=== PATIENT | female | born 1955 | race Two or more races ===

== ENCOUNTER 2017-10-17 13:15 | Inpatient (IN) | payer MEDICARE, MEDICAID ==
[~2017-10-17] VITALS: Ht 162.6 cm; Wt 78.5 kg
--- NOTE | 2017-10-17 14:26 | Diagnostic Imaging Report ---
Indication: Shortness of breath Technique: One view of the chest Comparison: none Findings: The heart is mildly enlarged. Lungs and pleural spaces are clear. Atelectasis or scarring is seen in the left mid to lower lung. No definite acute infiltrates or effusions. Impression: Borderline cardiomegaly No definite acute process
[2017-10-17 14:28] LABS: HEMATOCRIT 18.1 % (37.0-47.0); MEAN CORPUSCULAR VOLUME 98 FL (80-99); PLATELET COUNT 223 K/UL (150-450); RED BLOOD COUNT 1.85 M/UL (4.20-5.40); RED CELL DISTRIBUTION WIDTH 15.4 % (11.6-14.8); WHITE BLOOD COUNT 5.1 K/UL (4.8-10.8)
[2017-10-17 14:30] LABS: HEMOGLOBIN 5.7 G/DL (12.0-16.0)
--- NOTE | 2017-10-17 14:38 | Emergency Room Report ---
History of Present Illness General Chief Complaint: Generalized Weakness Source: Patient, EMS, PMD - covering MD for Med group Present Illness HPI Patient presents with weakness. She states that she was unable to walk as she usually does. She's status post CVA in the past - textbook associate and she are adamant that there is no new stroke weakness.. She has has diabetes. Her glucose was 400 in the field. Polyuria and polydipsia. She denies chest pain, dyspnea, headache, trauma, vomiting, cough, diarrhea. No depression. H/O anemia and taking iron. (Only after labs and review of records from [facility] - CRF Recent tx with protonix. 10/10 allegedly Hgb was 7.8.) Allergies: Coded Allergies: No Known Allergies (Unverified , 10/17/17) Patient History Past Medical History: see triage record, renal disease Social History: Denies: smoking Social History Narrative with sister Last Menstrual Period: Unk Reviewed Nursing Documentation: PMH: Agreed; PSxH: Agreed Nursing Documentation-PMH Hx Hypertension: Yes Hx Diabetes: Yes Hx Cerebrovascular Accident: Yes Review of Systems All Other Systems: negative except mentioned in HPI Physical Exam Vital Signs Date Time Temp Pulse Resp B/P (MAP) Pulse Ox O2 Delivery O2 Flow Rate FiO2 10/17/17 12:44 97.7 64 20 132/55 98 Room Air 97.7 Sp02 EP Interpretation: reviewed, normal General Appearance: no apparent distress, alert, GCS 15, non-toxic, Chronically Ill Head: normocephalic Eyes: right eye other - lid lag ENT: moist mucus membranes, other - R facial weak Neck: supple Respiratory: chest non-tender, lungs clear, normal breath sounds Cardiovascular #1: regular rate, rhythm Cardiovascular #2: 2+ radial (L) Gastrointestinal: normal inspection, normal bowel sounds, non tender, soft Rectal: heme positive stool - black Genitourinary: no CVA tenderness Neurologic: alert, oriented x3, community educator III-XII nml as tested - except for R facial weakness, motor strength/tone normal, DTRs symmetric, sensory intact Psychiatric: mood/affect normal Skin: pallor Procedures Critical Care Time Critical Care Time Total Critical Care Time: 45 min bedside evaluation and treatment excludes procedures (EKG). Reason for critical care: NSTEMI, GI bleed, renal failure, need for blood Possible complications: hypotension, hypertension, NE, shock, arrhythmias, metabolic acidosis, end organ damage, respiratory failure. Interventions: Aspirin, informed consent for blood, transfusion, antibiotics, consultations Course: Patient with weakness and elevated glucose. Found to have NSTEMI. Also critical H/H. Blood ordered and informed consent discussed. Discussion with family, DORIAN OROZCO, admitting MD, GI specialist. Admitted OBEY. Improved. No need for dialysis immediately. Consultations: nursing staff, EMS, family, DORIAN OROZCO, admitting MD, GI specialist Performed by: Dr. Gross Tolerated well condition = serious Medical Decision Making Diagnostic Impression: Primary Impression: NSTEMI (non-ST elevated myocardial infarction) Additional Impressions: Profound anemia Qualified Codes: D50.8 - Other iron deficiency anemias Renal failure Qualified Codes: N17.9 - Acute kidney failure, unspecified; N18.4 - Chronic kidney disease, stage 4 (severe) Upper GI bleed UTI (urinary tract infection) Qualified Codes: N30.00 - Acute cystitis without hematuria ER Course Patient presents with weakness and elevated glucose. DDX: AMI, DKA, hyperglycemia, occult infection, worsened renal function, anemia amongst others. Evaluation with EKG, CXR, labs. No increased unilateral weakness, so CT head not indicated (more generalized process). Treatment with gentle hydration and consideration for giving insulin with following accuchecks. EKG without injury. Lab called with + troponin. Aspirin ordered. Patient pain free. Lab called with critical hgb. Blood ordered. Also CRF. CXR with inc pulmonary vasculature, but no overt pulmonary edema. With NSTEMI and low H/H, need to immediatedly transfuse (though concern over CRF ). Informed consent for blood done by me. Dr. Dosdon wants to transfer. I discussed patient not stable for transfer at this time. He told me Hgb results 10/10. Rectal performed after discussion. Pyuria. Rocephin ordered. Discussion with Dr. Russ and Dr. Barlow. Admit patient OBEY. Laboratory Tests Test 10/17/17 14:09 10/17/17 16:45 10/17/17 22:53 White Blood Count 5.1 K/UL (4.8-10.8) Red Blood Count 1.85 M/UL (4.20-5.40) L Hemoglobin 5.7 G/DL (12.0-16.0) *L Hematocrit 18.1 % (37.0-47.0) L Mean Corpuscular Volume 98 FL (80-99) Mean Corpuscular Hemoglobin 30.6 PG (27.0-31.0) Mean Corpuscular Hemoglobin Concent 31.4 G/DL (32.0-36.0) L Red Cell Distribution Width 15.4 % (11.6-14.8) H Platelet Count 223 K/UL (150-450) Mean Platelet Volume 7.5 FL (6.5-10.1) Neutrophils (%) (Auto) % (45.0-75.0) Lymphocytes (%) (Auto) % (20.0-45.0) Monocytes (%) (Auto) % (1.0-10.0) Eosinophils (%) (Auto) % (0.0-3.0) Basophils (%) (Auto) % (0.0-2.0) Differential Total Cells Counted 100 Neutrophils % (Manual) 77 % (45-75) H Lymphocytes % (Manual) 18 % (20-45) L Monocytes % (Manual) 5 % (1-10) Eosinophils % (Manual) 0 % (0-3) Basophils % (Manual) 0 % (0-2) Band Neutrophils 0 % (0-8) Platelet Estimate Adequate Platelet Morphology Normal Hypochromasia 2+ Anisocytosis 1+ Prothrombin Time 12.0 SEC (9.30-11.50) H Prothrombin Time INR 1.1 (0.9-1.1) PTT 24 SEC (23-33) Sodium Level 137 MMOL/L (136-145) Potassium Level 3.8 MMOL/L (3.5-5.1) Chloride Level 102 MMOL/L (98-107) Carbon Dioxide Level 25 MMOL/L (21-32) Anion Gap 10 mmol/L (5-15) Blood Urea Nitrogen 113 mg/dL (7-18) H Creatinine 4.0 MG/DL (0.55-1.30) H Estimate Glomerular Filtration Rate 11.3 mL/min (>60) Glucose Level 317 MG/DL (74-106) H Calcium Level 8.7 MG/DL (8.5-10.1) Total Bilirubin 0.2 MG/DL (0.2-1.0) Aspartate Amino Transferase (AST) 17 U/L (15-37) Alanine Aminotransferase (ALT) 23 U/L (12-78) Alkaline Phosphatase 64 U/L (46-116) Total Creatine Kinase 127 U/L (26-308) Troponin I 0.097 ng/mL (0.000-0.056) Pro-B-Type Natriuretic Peptide 7166 pg/mL (0-125) H Total Protein 7.8 G/DL (6.4-8.2) Albumin 3.5 G/DL (3.4-5.0) Globulin 4.3 g/dL Albumin/Globulin Ratio 0.8 (1.0-2.7) L Urine Color Pale yellow Urine Appearance Slightly cloudy Urine pH 5 (4.5-8.0) Urine Specific [place] 1.010 (1.005-1.035) Urine Protein 3+ (NEGATIVE) H Urine Glucose (UA) Negative (NEGATIVE) Urine Ketones Negative (NEGATIVE) Urine Occult Blood 5+ (NEGATIVE) H Urine Nitrite Negative (NEGATIVE) Urine Bilirubin Negative (NEGATIVE) Urine Urobilinogen Normal MG/DL (0.0-1.0) Urine Leukocyte Esterase 2+ (NEGATIVE) H Urine RBC Tntc /HPF (0 - 2) H Urine WBC 10-15 /HPF (0 - 2) H Urine Squamous Epithelial Cells Few /LPF (NONE/OCC) Urine Bacteria Many /HPF (NONE) H Urine Osmolality 335 mOsm/kg (429-449) L Urine Random Sodium 35 mmol/L (20-110) Urine Creatinine 54.0 MG/DL (30.0-125.0) EKG Diagnostic Results Rate: normal Rhythm: NSR ST Segments: no acute changes ASA given to the pt in ED: Yes Rhythm Strip Diag. Results EP Interpretation: yes Rhythm: NSR, no PVC's, no ectopy Chest X-Ray Diagnostic Results Chest X-Ray Diagnostic Results : Chest X-Ray Ordered: Yes # of Views/Limited/Complete: 1 View Indication: Other EP Interpretation: Yes Interpretation: no consolidation, no effusion, no pneumothorax, other - inc cor Impression: Other Electronically Signed by: Electronically signed by Toni Gross MD Last Vital Signs Date Time Temp Pulse Resp B/P (MAP) Pulse Ox O2 Delivery O2 Flow Rate FiO2 10/17/17 20:10 97.7 55 13 131/80 100 Room Air 97.7 Status: improved Disposition: ADMITTED INPATIENT Condition: Serious Toni Gross M.D. Oct 17, 2017 14:38
[2017-10-17 14:39] LABS: INR 1.1 (0.9-1.1)
[2017-10-17 14:40] LABS: ANION GAP 10 mmol/L (5-15); BLOOD UREA NITROGEN 113 mg/dL (7-18); CALCIUM 8.7 MG/DL (8.5-10.1); CARBON DIOXIDE 25 MMOL/L (21-32); CHLORIDE 102 MMOL/L (98-107); POTASSIUM 3.8 MMOL/L (3.5-5.1); SODIUM 137 MMOL/L (136-145)
[2017-10-17 14:51] LABS: ALANINE AMINOTRANSFERASE 23 U/L (12-78); ALBUMIN 3.5 G/DL (3.4-5.0); ALBUMIN/GLOBULIN RATIO 0.8 (1.0-2.7); ALKALINE PHOSPHATASE 64 U/L (46-116); ASPARTATE AMINO TRANSFERASE 17 U/L (15-37); BILIRUBIN,TOTAL 0.2 MG/DL (0.2-1.0); CREATINE KINASE 127 U/L (26-308)
[2017-10-17 15:53] VITALS: BP 117/68
[2017-10-17 16:54] LABS: APPEARANCE,URINE SLIGHTLY CLOUDY; BILIRUBIN, URINE NEGATIVE (NEGATIVE); COLOR,URINE PALE YELLOW; GLUCOSE, URINE (UA) NEGATIVE (NEGATIVE); KETONES,URINE NEGATIVE (NEGATIVE); LEUKOCYTE ESTERASE ,URINE 2+ (NEGATIVE); NITRITE,URINE NEGATIVE (NEGATIVE); PH,URINE 5 (4.5-8.0); PROTEIN,URINE 3+ (NEGATIVE); UROBILINOGEN,URINE NORMAL MG/DL (0.0-1.0)
[2017-10-17] MEDS ORDERED: Pantoprazole Inj IVP ONE (17:00)
[2017-10-17] MEDS ORDERED: cefTRIAXone 1 GM in NS 55 ML IVPB ONE (17:30)
[2017-10-17] MEDS ORDERED: HUMULIN R100 UNIT/1 SUBQ (17:53)
[2017-10-17] MEDS ORDERED: FUROSEMIDE40 MG ORAL (17:55)
[2017-10-17] MEDS ORDERED: ELIQUIS2.5 MG PO (17:57)
[2017-10-17] MEDS ORDERED: CARVEDILOL25 MG ORAL (17:58)
[2017-10-17] MEDS ORDERED: FERRETTS325 MG PO (18:01)
[2017-10-17] MEDS ORDERED: ATORVASTATIN CA40 MG ORAL (18:01)
[2017-10-17] MEDS ORDERED: ACTOS15 MG ORAL (18:04)
[2017-10-17] MEDS ORDERED: GLIPIZIDE5 MG ORAL (18:04)
[2017-10-17] MEDS ORDERED: AMLODIPINE BESY10 MG ORAL (18:04)
[2017-10-17] MEDS ORDERED: FERROUS SULFAT325 MG ORAL (18:10)
[2017-10-17] MEDS ORDERED: LATANOPROST2.5 ML BOTH EYES (18:10)
[2017-10-17] MEDS ORDERED: DOCUSATE SODIU100 MG ORAL (18:10)
[2017-10-17] MEDS ORDERED: ASPIRIN81 MG ORAL (18:10)
[2017-10-17] MEDS ORDERED: SEN-O-TAB8.6 MG ORAL (18:12)
[2017-10-17 19:13] VITALS: BP 115/53
[2017-10-17 20:10] VITALS: BP 131/80
[2017-10-17] MEDS: Pantoprazole Inj IVP SCH (21:14)
--- NOTE | 2017-10-17 21:48 | General Progress Note ---
Assessment/Plan Assessment/Plan GI CONSULT Assessment: - GI Bleed - Anemia - NIDDM - CRF - Recent h/o CVA - on ASA and Eliquis Recommendations: - NPO - monitor CBC - hold Eliquis and Aspirin - Took Eliquis and Aspirin today --> will postpone am EGD to another date - will follow Thank you Veronika Frias MD Subjective Allergies: Coded Allergies: No Known Allergies (Unverified , 10/17/17) Objective Last 24 Hour Vital Signs Date Time Temp Pulse Resp B/P (MAP) Pulse Ox O2 Delivery O2 Flow Rate FiO2 10/17/17 20:10 97.7 55 13 131/80 100 Room Air 97.7 10/17/17 20:07 55 13 131/80 100 Room Air 10/17/17 19:13 97.7 55 11 115/53 100 Room Air 97.7 10/17/17 15:53 97.7 89 20 117/68 100 Room Air 97.7 10/17/17 12:44 97.7 64 20 132/55 98 Room Air 97.7 Laboratory Tests 10/17/17 14:09: White Blood Count 5.1, Red Blood Count 1.85L, Hemoglobin 5.7*L, Hematocrit 18.1L , Mean Corpuscular Volume 98, Mean Corpuscular Hemoglobin 30.6, Mean Corpuscular Hemoglobin Concent 31.4L, Red Cell Distribution Width 15.4H, Platelet Count 223, Mean Platelet Volume 7.5, Neutrophils (%) (Auto) , Lymphocytes (%) (Auto) , Monocytes (%) (Auto) , Eosinophils (%) (Auto) , Basophils (%) (Auto) , Differential Total Cells Counted 100, Neutrophils % ( Manual) 77H, Lymphocytes % (Manual) 18L, Monocytes % (Manual) 5, Eosinophils % ( Manual) 0, Basophils % (Manual) 0, Band Neutrophils 0, Platelet Estimate Adequate, Platelet Morphology Normal, Hypochromasia 2+, Anisocytosis 1+, Prothrombin Time 12.0H, Prothromb Time International Ratio 1.1, Activated Partial Thromboplast Time 24, Sodium Level 137, Potassium Level 3.8, Chloride Level 102, Carbon Dioxide Level 25, Anion Gap 10, Blood Urea Nitrogen 113H, Creatinine 4.0H, Estimat Glomerular Filtration Rate 11.3, Glucose Level 317H, Calcium Level 8.7, Total Bilirubin 0.2, Aspartate Amino Transf (AST/SGOT) 17, Alanine Aminotransferase (ALT/SGPT) 23, Alkaline Phosphatase 64, Total Creatine Kinase 127, Troponin I 0.097H, Pro-B-Type Natriuretic Peptide 7166H, Total Protein 7.8, Albumin 3.5, Globulin 4.3, Albumin/Globulin Ratio 0.8L 10/17/17 16:45: Urine Color Pale yellow, Urine Appearance Slightly cloudy, Urine pH 5, Urine Specific [place] 1.010, Urine Protein 3+H, Urine Glucose (UA) Negative, Urine Ketones Negative, Urine Occult Blood 5+H, Urine Nitrite Negative, Urine Bilirubin Negative, Urine Urobilinogen Normal, Urine Leukocyte Esterase 2+H, Urine RBC TntcH, Urine WBC 10-15H, Urine Squamous Epithelial Cells Few, Urine Bacteria ManyH Height (Feet): 5 Height (Inches): 4.00 Weight (Pounds): 175 FLYVERONIKA Oct 17, 2017 21:48
[2017-10-17] MEDS: NS w/KCl 20mEq 1,000 ML IV SCH (22:30)
[2017-10-18] MEDS ORDERED: Metoprolol Tartrate 5 MG in D5W 55 ML IVPB SCH ×2
[2017-10-18] MEDS ORDERED: Metoprolol 5mg/5ml Inj IVPB SCH
[2017-10-18 00:47] VITALS: BP 126/61
--- NOTE | 2017-10-18 02:15 | Consultation ---
DATE OF CONSULTATION: 10/17/2017 CARDIOLOGY CONSULTATION CONSULTING PHYSICIAN: Toni Ariza M.D. REASON FOR CONSULTATION: Elevated troponin level in the setting of acute GI bleeding. HISTORY OF PRESENT ILLNESS: This is a 62-year-old female with advanced atherosclerosis, prior strokes, and a history of hypertension with congestive heart failure. She is also on chronic anticoagulation, although it is unclear why. She presented to the emergency room with weakness and unsteady gait, although usually she has difficulty walking even with a walker due to prior strokes. The symptoms had worsened today. The patient was noted to have a severely low hemoglobin level of less than 6 with a troponin level of 0.097. Her historical data is obtained from her sister who notes that she has had black stool due to iron replacement, but more recently it became darker. PAST MEDICAL HISTORY: 1. Diabetes mellitus type 2. 2. Hypertension. 3. Congestive heart failure. 4. History of multiple strokes. 5. Possible history of atrial fibrillation. MEDICATIONS: Prior to admission, reviewed and reconciled. ALLERGIES: None. FAMILY HISTORY: Noncontributory. SOCIAL HISTORY: Nonsmoker. No alcohol or substance abuse. REVIEW OF SYSTEMS: She was last hospitalized in May with congestive heart failure according to her sister. PHYSICAL EXAMINATION: GENERAL: Frail, awake, alert, and interactive. No acute distress. VITAL SIGNS: Blood pressure 132/55, pulse 64, and respiratory rate 20. HEENT: Normocephalic and atraumatic. Conjunctivae pink. Oropharynx clear. NECK: Supple. Jugular venous pressure normal. LUNGS: Clear. CARDIAC: Regular rhythm and rate. Normal S1 and S2 with a fourth heart sound. ABDOMEN: Soft, nontender. EXTREMITIES: There is 1+ dependent edema. NEUROLOGIC: With left-sided weakness. LABORATORY AND DIAGNOSTIC DATA: EKG reveals sinus rhythm with minimal voltage for LVH and no acute changes. Chest x-ray with no acute process other than cardiomegaly. Labs, white count 5.1, hemoglobin 5.7, MCV 98, and platelet count 223. Troponin 0.097. Pro-natriuretic peptide 7166. BUN 113, creatinine 4, and potassium 3.8. IMPRESSION: 1. Severe anemia due to acute gastrointestinal bleeding. 2. Acute myocardial infarction precipitated by severe anemia and decreased oxygen carrying capacity. 3. Acute on chronic systolic and diastolic congestive heart failure. 4. Cerebrovascular disease with multi-infarct dementia. 5. Type 2 diabetes mellitus. 6. Hypertensive heart disease. 7. Acute on chronic renal failure. 8. Coagulopathy due to apixaban. PLAN: Transfuse to hemoglobin above 8. Hold anticoagulation. Cautious hydration. Monitor cardiorenal parameters and volume status. Intravenous beta-antonieta. No anti-platelet or anticoagulant therapy. DVT prophylaxis with SCDs. GI evaluation and possible endoscopy, although risk will be increased due to comorbidities and acute coronary ischemia. Toni Ariza M.D. DR: LUIS ALFREDO JOB#: [id number] CC:
[2017-10-18 02:56] LABS: HEMATOCRIT 22.9 % (37.0-47.0); HEMOGLOBIN 7.9 G/DL (12.0-16.0); MEAN CORPUSCULAR VOLUME 93 FL (80-99); PLATELET COUNT 201 K/UL (150-450); RED BLOOD COUNT 2.46 M/UL (4.20-5.40); RED CELL DISTRIBUTION WIDTH 14.7 % (11.6-14.8); WHITE BLOOD COUNT 5.6 K/UL (4.8-10.8)
[2017-10-18 03:14] LABS: ALANINE AMINOTRANSFERASE 22 U/L (12-78); ALBUMIN 3.3 G/DL (3.4-5.0); ALBUMIN/GLOBULIN RATIO 0.9 (1.0-2.7); ALKALINE PHOSPHATASE 65 U/L (46-116); ANION GAP 12 mmol/L (5-15); ASPARTATE AMINO TRANSFERASE 15 U/L (15-37); BILIRUBIN,TOTAL 0.6 MG/DL (0.2-1.0); BLOOD UREA NITROGEN 105 mg/dL (7-18); CALCIUM 8.2 MG/DL (8.5-10.1); CARBON DIOXIDE 24 MMOL/L (21-32); CHLORIDE 106 MMOL/L (98-107); CREATININE 3.7 MG/DL (0.55-1.30); POTASSIUM 3.1 MMOL/L (3.5-5.1); SODIUM 141 MMOL/L (136-145)
[2017-10-18 04:00] VITALS: BP 120/60
--- NOTE | 2017-10-18 05:30 | Consultation ---
DATE OF CONSULTATION: 10/17/2017 GASTROENTEROLOGY CONSULTATION CONSULTING PHYSICIAN: Veronika Frias M.D. CHIEF COMPLAINT: I was asked to see the patient for evaluation of gastrointestinal bleeding. HISTORY OF PRESENT ILLNESS: The patient is a pleasant 62-year-old woman, who comes in with severe anemia, which is symptomatic. She has been generally feeling weak for weeks now and she has been known to have a history of end-stage renal disease approaching dialysis. However, today the patient felt lightheaded and dizzy and came to the emergency room where she was noted to have dark heme-positive stools and severe anemia. It should be noted however that the patient does take iron and her stools are always black. Nonetheless, the patient is admitted and is undergoing transfusion. She is on aspirin and Eliquis for a history of frequent small strokes. These have been both given to her for the past few months. She has never had endoscopy or colonoscopy before. She has multiple other medical problems, which are outlined below. She denies any abdominal pain, nausea, or vomiting. PAST MEDICAL HISTORY: History of insulin-dependent diabetes mellitus, history of hypercholesterolemia, history of end-stage renal disease, which apparently is stage IV, but not on dialysis yet; history of anemia, on iron; and history of multiple mini strokes, on Eliquis and aspirin. ALLERGIES: Noted. FAMILY HISTORY: Noncontributory. SOCIAL HISTORY: The patient lives at home with her sister. She does not smoke or drink at this time. REVIEW OF SYSTEMS: Otherwise negative. PHYSICAL EXAMINATION: GENERAL: A pleasant -I[place]ian woman, seen in her room with family at bedside. HEENT: Normocephalic and atraumatic. Sclerae anicteric. Oropharynx clear. NECK: Supple. CHEST: Clear to auscultation. CARDIOVASCULAR: Revealed a regular rate. ABDOMEN: Soft with good bowel sounds. There is no organomegaly. EXTREMITIES: Revealed no edema. LABORATORY AND DIAGNOSTIC DATA: Laboratory data were noted. ASSESSMENT: This patient presents with severe anemia with heme-positive stools. Her stools are dark, but this may be due to iron and the degree of acuity of gastrointestinal bleeding is uncertain. Some of the anemia may be indeed due to chronic renal disease with azotemia. Nonetheless, the patient will need to be risk stratified with endoscopic evaluation. The patient states that her last dose of Eliquis and aspirin were this morning, and therefore, therapeutic treatment only at this point may be limited. The patient will be observed closely for now. The patient should receive blood transfusion if needed and also have her blood levels checked serially. The patient had a small degree of troponin leak, but her EKG is unremarkable and she denies having chest pain. I suspect that this is from the severe anemia. Her endoscopy will be scheduled once adequate time has lapsed from her last dose of Eliquis. Endoscopy can be done sooner if there is clinical evidence of significant gastrointestinal bleeding. RECOMMENDATIONS: 1. Keep the patient NPO. 2. Transfuse as needed. 3. Proton-pump inhibitor. 4. Hold aspirin and Eliquis. 5. Upper GI endoscopy at a later date 6. Cardiology evaluation Thank you for asking me to participate in the care of the patient. Veronika Frias M.D. DR: SALINAS JOB#: [id number] CC: KENYATTA
[2017-10-18] MEDS: Metoprolol Tartrate 5 MG in D5W 55 ML IVPB SCH ×5 (06:00→17:39)
[2017-10-18 08:15] VITALS: BP 125/62
--- NOTE | 2017-10-18 09:33 | History & Physical ---
History and Physical History & Physicial dict GIB NV CHF admit inpatient transfuse Lasix consult GI, EGD consult cardiology, renal Eduardo Russ MD Oct 18, 2017 09:33
[2017-10-18] MEDS: Pantoprazole Inj IVP SCH ×2 (10:15→20:51)
[2017-10-18 12:00] VITALS: BP 131/68
[2017-10-18] MEDS: NS w/KCl 20mEq 1,000 ML IV SCH (15:46)
[2017-10-18 16:00] VITALS: BP 146/72
--- NOTE | 2017-10-18 18:30 | History and Physical Report ---
DATE OF ADMISSION: 10/17/2017 CHIEF COMPLAINT: Weakness. HISTORY OF PRESENT ILLNESS: The patient presented to the emergency department with several days of weakness and black tarry stool. She was found to have GI bleeding and hemoglobin of 5. Blood transfusions were given and she is feeling better. She states that she has had many blood transfusions over the years, but is not sure why she is anemic. She is on blood thinners. She has never had an endoscopy and is not aware of any history of GI bleeding. PAST MEDICAL HISTORY: Multiple strokes with right-sided weakness, hypertension, congestive heart failure, stage 5 renal failure, but not on dialysis and anemia. She has diabetes, which is controlled with diet and oral medications as well as insulin, possible history of atrial fibrillation and hyperlipidemia. MEDICATIONS: Amlodipine, Eliquis, baby aspirin, Lipitor, Coreg, Colace, iron, Lasix, glipizide, insulin, Xalatan, Actos and senna. ALLERGIES: None. REVIEW OF SYSTEMS: She has difficulty ambulating and uses a walker. She has no headaches or seizures. She has no difficulty with vision. There is no shortness of breath or chest pain. She has no history of cardiac disease to her knowledge. There is no history of nausea, vomiting or diarrhea, but she has melena as noted above. She has no ankle edema, but does have some joint pain. PHYSICAL EXAMINATION: GENERAL: The patient is alert and responds appropriately. She has mild dysarthria. VITAL SIGNS: Normal with heart rate is slightly low at 55. She is on nasal oxygen. HEENT: The head is normocephalic. NECK: No jugular vein distention. CHEST: Clear. CARDIAC: Rhythm is regular without murmur or gallop. ABDOMEN: Soft and nontender. Liver and spleen are not enlarged. EXTREMITIES: No clubbing, cyanosis, or edema. There is right-sided weakness and right facial droop. LABORATORY AND DIAGNOSTIC DATA: Hemoglobin was 5.7 on admission and has improved to 7.9 after 2 units of pack cells. Platelets are normal. White count is normal. The blood sugar is 149, sodium is low today and its supplements were ordered. Creatinine was 4.0 and BUN 113 with estimated creatinine clearance of 11, today the creatinine is down to 3.7. Troponin is elevated at 0.09 and kendall today to 0.138. IMPRESSION: 1. Acute GI bleed with severe anemia due to blood loss. 2. Acute MA due to demand ischemia, rule out coronary heart disease. 3. CHF with elevated natriuretic peptide. 4. Diabetes. 5. Hypertension, now normotensive, off medication. 6. Hyperlipidemia. 7. History of multiple strokes, on anticoagulants. 8. End-stage renal disease, stage 5, not on dialysis. PLAN: The patient's anticoagulation was discontinued. Consultation have been requested with GI, Nephrology and Cardiology. She will require endoscopy. Additional blood transfusions will be given in view of the cardiac disease and hemoglobin less than 8. Lasix will be given. She may require dialysis. The patient is seriously ill and prognosis is guarded. Eduardo Russ M.D. DR: GERARDO JOB#: [id number] CC: Eduardo Russ M.D.; Fax#: [phone] ATTILA BILL M.D. ; FAX#: [phone] Debora Hess M.D.; FAX#: [phone]
[2017-10-18 20:00] VITALS: BP 147/71
[2017-10-18] MEDS: Latanoprost 0.005% Opth 2.5ml Soln BOTH EYES SCH (20:50)
[2017-10-18] MEDS: LORazepam 0.5mg tab ORAL PRN (20:51)
--- NOTE | 2017-10-18 21:15 | Consultation ---
DATE OF CONSULTATION: 10/18/2017 CONSULTING PHYSICIAN: Fabian Gómez M.D. REASON FOR CONSULTATION: Elevated BUN and creatinine. HISTORY OF PRESENT ILLNESS: The patient is a 62-year-old lady, who presents with severe anemia and weakness. There is history of prior CVAs, anticoagulation, hypertension, congestive heart failure. She presented with severe anemia and dark stools although she is taking iron. ALLERGIES: None known. HABITS: She is a nonsmoker and nondrinker. SURGERIES: Hysterectomy and appendectomy. MEDICATIONS: Prior to admission, medications on the computer include amlodipine, apixaban, aspirin, atorvastatin, carvedilol, DSS, ferrous sulfate, furosemide, glipizide, regular insulin sliding scale, Xalatan, Actos, and senna. SYSTEM REVIEW: HEAD, EYES, EARS, NOSE, THROAT: She has had decreased visual acuity. She is not known to have any diabetic retinopathy. Hearing is good. ENDOCRINE: Diabetes apparently for only 1 to 2 years now. No known thyroid disease. PULMONARY: She has dyspnea on exertion. No chronic cough or asthma. CARDIAC: History of hypertension, CHF. GASTROINTESTINAL: Denies nausea, vomiting, or abdominal pain. GENITOURINARY: No dysuria or hematuria. NEUROLOGIC: History of prior CVAs and dysarthria. MUSCULOSKELETAL: History of mild arthralgias. She is able to walk. PHYSICAL EXAMINATION: GENERAL: The patient is lying in bed, chronically ill-appearing, alert. VITAL SIGNS: Temperature 96.8, pulse 52, blood pressure 121/73. HEAD, EYES, EARS, NOSE, THROAT: Sclerae are nonicteric. Ocular motions intact in all directions. Oral mucosa moist. NECK: No adenopathy. LUNGS: Clear. HEART: The rhythm is regular. Apical S4. I hear no murmur. There is JVD about 6 cm above the clavicle at 30 degrees. ABDOMEN: Soft. I am unable to feel liver or spleen. EXTREMITIES: Show 1+ edema. NEUROLOGIC: She is alert, dysarthric. Ocular motions intact in all directions. There is questionable facial asymmetry. She moves all extremities. Flavorer is 4+/5 in both arms. Gait is not tested. LABORATORY AND DIAGNOSTIC DATA: Pertinent labs as follows. Urinalysis has 3+ protein, too numerous to count red cells, and 10 to 15 white cells per high-powered field. Urine sodium 35, urine creatinine is 54. Chemistries today, sodium 141, potassium 3.1, chloride 106, CO2 24, BUN 105, creatinine is 3.7, calcium 8.2, and albumin 3.3. Troponin 0.138. Chest x-ray, cardiomegaly. IMPRESSION: 1. Severe anemia, likely GI bleeding. 2. Chronic kidney disease, likely stage 4-5, with proteinuria and possibly nephrotic syndrome. 3. History of CVAs. 4. Ischemic cardiomyopathy. 5. Hypertensive heart disease and renal disease. 6. Diabetic nephropathy. PLAN: We will watch the patient while she is being receiving transfusions and having GI evaluation. Avoid fluid overload. Continue to maximize her cardiac status. I discussed with the family and the patient at the bedside that she has chronic kidney disease and they are aware. She states she had seen a veneer jointer helper in the past. I have also discussed the fact that she may need dialysis sometime in the near future and should be prepared for that after her current problem is stabilized. Fabian Gómez M.D. DR: Mary JOB#: [id number] CC:
--- NOTE | 2017-10-18 21:24 | General Progress Note ---
Assessment/Plan Assessment/Plan Assessment: - GI Bleed - Anemia - NIDDM - CRF - Recent h/o CVA - on ASA and Eliquis Recommendations: - clear liquids - monitor CBC - hold Eliquis and Aspirin - EGD at later date Subjective Allergies: Coded Allergies: No Known Allergies (Unverified , 10/17/17) Subjective Feels OK no new symptoms H&H noted Objective Last 24 Hour Vital Signs Date Time Temp Pulse Resp B/P (MAP) Pulse Ox O2 Delivery O2 Flow Rate FiO2 10/18/17 17:39 51 116/69 10/18/17 16:00 97.5 57 18 146/72 98 Nasal Cannula 97.5 10/18/17 16:00 56 10/18/17 12:00 96.8 54 18 131/68 98 Nasal Cannula 96.8 10/18/17 12:00 57 10/18/17 12:00 52 121/73 10/18/17 08:50 Nasal Cannula 2.0 28 10/18/17 08:49 99 Nasal Cannula 2.0 28 10/18/17 08:15 98.2 56 18 125/62 100 Nasal Cannula 98.2 10/18/17 08:00 57 10/18/17 06:00 54 120/60 10/18/17 04:00 55 10/18/17 04:00 98.3 55 20 120/60 100 Nasal Cannula 2.0 98.3 10/18/17 00:47 98.9 54 20 126/61 100 Nasal Cannula 2.0 98.9 10/18/17 00:30 Nasal Cannula 2.0 28 10/18/17 00:30 99 Nasal Cannula 2.0 28 10/18/17 00:00 54 124/61 10/18/17 00:00 55 Intake and Output 10/17/17 10/18/17 19:00 07:00 Intake Total 1010 ml Output Total 550 ml Balance 460 ml Intake IV Total 510 ml Blood Product 500 ml Output Urine Total 550 ml # Voids 1 2 Laboratory Tests 10/17/17 22:53: Urine Osmolality 335L, Urine Random Sodium 35, Urine Creatinine 54.0 10/18/17 02:19: White Blood Count 5.6, Red Blood Count 2.46L, Hemoglobin 7.9#L, Hematocrit 22.9L , Mean Corpuscular Volume 93, Mean Corpuscular Hemoglobin 32.0H, Mean Corpuscular Hemoglobin Concent 34.3, Red Cell Distribution Width 14.7, Platelet Count 201, Mean Platelet Volume 7.9, Neutrophils (%) (Auto) , Lymphocytes (%) ( Auto) , Monocytes (%) (Auto) , Eosinophils (%) (Auto) , Basophils (%) (Auto) , Sodium Level 141, Potassium Level 3.1L, Chloride Level 106, Carbon Dioxide Level 24, Anion Gap 12, Blood Urea Nitrogen 105H, Creatinine 3.7H, Estimat Glomerular Filtration Rate 12.3, Glucose Level 149#H, Calcium Level 8.2L, Total Bilirubin 0.6, Aspartate Amino Transf (AST/SGOT) 15, Alanine Aminotransferase ( ALT/SGPT) 22, Alkaline Phosphatase 65, Troponin I 0.138H, Pro-B-Type Natriuretic Peptide 6494H, Total Protein 6.9, Albumin 3.3L, Globulin 3.6, Albumin/Globulin Ratio 0.9L, Thyroid Stimulating Hormone (TSH) 2.749 Height (Feet): 5 Height (Inches): 4.00 Weight (Pounds): 166 Objective WDWN NCAT supple CTA RRR abd soft ND NT trace edema non focal ATTILA BILL Oct 18, 2017 21:24
[2017-10-18] MEDS: Zolpidem 5mg tab ORAL PRN (22:59)
[2017-10-19] VITALS: BP 123/54
--- NOTE | 2017-10-19 02:15 | Progress Note ---
DATE: 10/18/2017 CARDIOLOGY PROGRESS NOTE SUBJECTIVE: The patient has had continued bleeding. She has required several units of packed red blood cell transfusions. She has been on anti-platelet and anticoagulant therapy prior to admission. She is on a clear liquid diet at this time. OBJECTIVE: VITAL SIGNS: Blood pressure of 121/73 to 146/72, heart rate 52 to 57, respiratory rate 18, and she is afebrile. HEENT: Oropharynx clear. NECK: Supple. LUNGS: Clear. CARDIAC: Regular rhythm and rate. Normal S1, S2 with a fourth heart sound. There is elevated jugular venous pressure. ABDOMEN: Soft. EXTREMITIES: A 1+ dependent edema. The patient has diminished wellness guide, left greater than right. LABORATORY DATA: Hemoglobin 7.9 following two units of packed red blood cells. Sodium 141, potassium 3.1, bicarbonate 24, BUN 105, and creatinine 3.7. Troponin 0.138. Pro-natriuretic peptide is 6400. Albumin 3.3. TSH is normal. IMPRESSION: 1. Severe anemia precipitated by acute gastrointestinal blood loss. 2. Acute gastrointestinal bleeding. 3. Hypokalemia. 4. Acute on chronic renal failure. 5. Acute myocardial infarction. 6. Acute on chronic diastolic and systolic congestive heart failure. 7. Severe protein-calorie malnutrition. 8. Hematuria. 9. Bradycardia. PLAN: 1. Transfuse to maintain hemoglobin level above 7.5. 2. Hold anti-platelet and anticoagulation. 3. Cautious maintenance IV fluid hydration. 4. Titrate antihypertensives. 5. Hold parameters with beta-blockers. 6. Reassess for diagnostic GI workup once more stable from cardiovascular standpoint. Toni Ariza M.D. DR: JADEN JOB#: [id number] CC:
[2017-10-19 04:00] VITALS: BP 140/54
[2017-10-19] MEDS: Metoprolol Tartrate 5 MG in D5W 55 ML IVPB SCH ×5 (06:00→18:00)
[2017-10-19] MEDS: NS w/KCl 20mEq 1,000 ML IV SCH (06:31)
[2017-10-19 06:48] LABS: BASOPHILS % (AUTO) 0.4 % (0.0-2.0); EOSINOPHILS % (AUTO) 0.7 % (0.0-3.0); HEMATOCRIT 27.3 % (37.0-47.0); HEMOGLOBIN 9.6 G/DL (12.0-16.0); LYMPHOCYTES % (AUTO) 10.1 % (20.0-45.0); MEAN CORPUSCULAR VOLUME 94 FL (80-99); MONOCYTES % (AUTO) 6.7 % (1.0-10.0); NEUTROPHILS % (AUTO) 82.1 % (45.0-75.0); PLATELET COUNT 196 K/UL (150-450); RED BLOOD COUNT 2.92 M/UL (4.20-5.40); RED CELL DISTRIBUTION WIDTH 14.9 % (11.6-14.8); WHITE BLOOD COUNT 10.8 K/UL (4.8-10.8)
[2017-10-19 07:05] LABS: ALANINE AMINOTRANSFERASE 21 U/L (12-78); ALBUMIN 3.2 G/DL (3.4-5.0); ALBUMIN/GLOBULIN RATIO 0.8 (1.0-2.7); ALKALINE PHOSPHATASE 67 U/L (46-116); ANION GAP 14 mmol/L (5-15); ASPARTATE AMINO TRANSFERASE 15 U/L (15-37); BILIRUBIN,TOTAL 0.6 MG/DL (0.2-1.0); BLOOD UREA NITROGEN 88 mg/dL (7-18); CALCIUM 8.5 MG/DL (8.5-10.1); CARBON DIOXIDE 23 MMOL/L (21-32); CHLORIDE 108 MMOL/L (98-107); CHOLESTEROL 103 MG/DL (< 200); CREATININE 3.4 MG/DL (0.55-1.30); HDL CHOLESTEROL 44 MG/DL (40-60); POTASSIUM 3.4 MMOL/L (3.5-5.1); SODIUM 145 MMOL/L (136-145); TRIGLYCERIDES 38 MG/DL (30-150)
[2017-10-19 08:00] VITALS: BP 141/76
[2017-10-19] MEDS: Pantoprazole Inj IVP SCH ×2 (09:35→20:53)
[2017-10-19] MEDS ORDERED: NS 275ml ONE (09:58)
[2017-10-19] MEDS ORDERED: Tubing IV Blood Pump IV ONE (09:58)
--- NOTE | 2017-10-19 10:54 | General Progress Note ---
Assessment/Plan Assessment/Plan Assessment: - GI Bleed - Anemia - NIDDM - CRF - Recent h/o CVA - on ASA and Eliquis Recommendations: - advance po to solids - monitor CBC - hold Eliquis and Aspirin - EGD Saturday, if OK with cardiology Subjective Allergies: Coded Allergies: No Known Allergies (Unverified , 10/17/17) Subjective Feels OK no new symptoms H&H noted hungry Objective Last 24 Hour Vital Signs Date Time Temp Pulse Resp B/P (MAP) Pulse Ox O2 Delivery O2 Flow Rate FiO2 10/19/17 07:40 Nasal Cannula 2.0 28 10/19/17 07:40 94 Nasal Cannula 2.0 28 10/19/17 06:00 54 140/54 10/19/17 04:00 97.5 60 19 140/54 100 Nasal Cannula 2.0 97.5 10/19/17 04:00 59 10/19/17 00:00 54 135/71 10/19/17 00:00 97.5 54 19 123/54 100 Nasal Cannula 2.0 97.5 10/19/17 00:00 59 10/18/17 20:00 62 10/18/17 20:00 97.5 60 18 147/71 98 Nasal Cannula 2.0 97.5 10/18/17 19:21 98 Nasal Cannula 2.0 28 10/18/17 19:21 Nasal Cannula 2.0 28 10/18/17 17:39 51 116/69 10/18/17 16:00 97.5 57 18 146/72 98 Nasal Cannula 97.5 10/18/17 16:00 56 10/18/17 12:00 96.8 54 18 131/68 98 Nasal Cannula 96.8 10/18/17 12:00 57 10/18/17 12:00 52 121/73 Intake and Output 10/18/17 10/19/17 19:00 07:00 Intake Total 1620 ml 990 ml Output Total 600 ml 1000 ml Balance 1020 ml -10 ml Intake Oral 300 ml IV Total 720 ml 690 ml Other 900 ml Output Urine Total 600 ml 1000 ml Laboratory Tests 10/19/17 04:00: White Blood Count 10.8#, Red Blood Count 2.92L, Hemoglobin 9.6L, Hematocrit 27.3L, Mean Corpuscular Volume 94, Mean Corpuscular Hemoglobin 32.8H, Mean Corpuscular Hemoglobin Concent 35.0, Red Cell Distribution Width 14.9H, Platelet Count 196, Mean Platelet Volume 8.1, Neutrophils (%) (Auto) 82.1H, Lymphocytes (%) (Auto) 10.1L, Monocytes (%) (Auto) 6.7, Eosinophils (%) (Auto) 0.7, Basophils (%) (Auto) 0.4, Sodium Level 145, Potassium Level 3.4L, Chloride Level 108H, Carbon Dioxide Level 23, Anion Gap 14, Blood Urea Nitrogen 88H, Creatinine 3.4H, Estimat Glomerular Filtration Rate 13.6, Glucose Level 163H, Hemoglobin A1c 6.9H, Calcium Level 8.5, Total Bilirubin 0.6, Aspartate Amino Transf (AST/SGOT) 15, Alanine Aminotransferase (ALT/SGPT) 21, Alkaline Phosphatase 67, Total Protein 7.3, Albumin 3.2L, Globulin 4.1, Albumin/Globulin Ratio 0.8L, Triglycerides Level 38, Cholesterol Level 103, LDL Cholesterol 61, HDL Cholesterol 44, Cholesterol/HDL Ratio 2.3L, Thyroid Stimulating Hormone (TSH ) 1.791 Height (Feet): 5 Height (Inches): 4.00 Weight (Pounds): 165 Objective WDWN NCAT supple CTA RRR abd soft ND NT trace edema non focal ATTILA BILL Oct 19, 2017 10:54
[2017-10-19 12:00] VITALS: BP 145/72
--- NOTE | 2017-10-19 15:04 | Pulmonology Progress Note ---
Assessment/Plan Assessment/Plan 1. Acute GI bleed with severe anemia due to blood loss. 2. Acute PR due to demand ischemia, rule out coronary heart disease. 3. CHF with elevated natriuretic peptide. 4. Diabetes. 5. Hypertension, now normotensive, off medication. 6. Hyperlipidemia. 7. History of multiple strokes, on anticoagulants. 8. End-stage renal disease, stage 5, not on dialysis. HD per renal prbc if less than 7 nebx home meds bp stable EGD saturday watch io Subjective ROS Limited/Unobtainable: No Allergies: Coded Allergies: No Known Allergies (Unverified , 10/17/17) Subjective confused positive uop no cp nv or bleeding not getting oob minimal po Objective Last 24 Hour Vital Signs Date Time Temp Pulse Resp B/P (MAP) Pulse Ox O2 Delivery O2 Flow Rate FiO2 10/19/17 12:00 52 10/19/17 12:00 97.5 50 18 145/72 100 Nasal Cannula 2.0 97.5 10/19/17 12:00 52 141/76 10/19/17 08:00 97.0 56 16 141/76 100 Nasal Cannula 2.0 97.0 10/19/17 08:00 97 10/19/17 07:40 Nasal Cannula 2.0 28 10/19/17 07:40 94 Nasal Cannula 2.0 28 10/19/17 06:00 54 140/54 10/19/17 04:00 97.5 60 19 140/54 100 Nasal Cannula 2.0 97.5 10/19/17 04:00 59 10/19/17 00:00 54 135/71 10/19/17 00:00 97.5 54 19 123/54 100 Nasal Cannula 2.0 97.5 10/19/17 00:00 59 10/18/17 20:00 62 10/18/17 20:00 97.5 60 18 147/71 98 Nasal Cannula 2.0 97.5 10/18/17 19:21 98 Nasal Cannula 2.0 28 10/18/17 19:21 Nasal Cannula 2.0 28 10/18/17 17:39 51 116/69 10/18/17 16:00 97.5 57 18 146/72 98 Nasal Cannula 97.5 10/18/17 16:00 56 Intake and Output 10/18/17 10/19/17 19:00 07:00 Intake Total 1620 ml 990 ml Output Total 600 ml 1000 ml Balance 1020 ml -10 ml Intake Oral 300 ml IV Total 720 ml 690 ml Other 900 ml Output Urine Total 600 ml 1000 ml General Appearance: WD/WN HEENT: atraumatic Respiratory/Chest: crackles/rales, rhonchi Cardiovascular: normal rate, regular rhythm, murmur systolic Abdomen: soft, non tender, no organomegaly Extremities: no clubbing Skin: no rash Neurologic/Psychiatric: disoriented Lymphatic: no groin adenopathy Microbiology Date/Time Source Procedure Growth Status 10/17/17 16:45 Urine,Clean Catch Urine Culture - Final Escherichia Coli Complete Laboratory Tests 10/19/17 04:00: White Blood Count 10.8#, Red Blood Count 2.92L, Hemoglobin 9.6L, Hematocrit 27.3L, Mean Corpuscular Volume 94, Mean Corpuscular Hemoglobin 32.8H, Mean Corpuscular Hemoglobin Concent 35.0, Red Cell Distribution Width 14.9H, Platelet Count 196, Mean Platelet Volume 8.1, Neutrophils (%) (Auto) 82.1H, Lymphocytes (%) (Auto) 10.1L, Monocytes (%) (Auto) 6.7, Eosinophils (%) (Auto) 0.7, Basophils (%) (Auto) 0.4, Sodium Level 145, Potassium Level 3.4L, Chloride Level 108H, Carbon Dioxide Level 23, Anion Gap 14, Blood Urea Nitrogen 88H, Creatinine 3.4H, Estimat Glomerular Filtration Rate 13.6, Glucose Level 163H, Hemoglobin A1c 6.9H, Calcium Level 8.5, Total Bilirubin 0.6, Aspartate Amino Transf (AST/SGOT) 15, Alanine Aminotransferase (ALT/SGPT) 21, Alkaline Phosphatase 67, Total Protein 7.3, Albumin 3.2L, Globulin 4.1, Albumin/Globulin Ratio 0.8L, Triglycerides Level 38, Cholesterol Level 103, LDL Cholesterol 61, HDL Cholesterol 44, Cholesterol/HDL Ratio 2.3L, Thyroid Stimulating Hormone (TSH ) 1.791 Current Medications Medications (Trade) Dose Ordered Sig/Leigh Route PRN Reason Start Time Stop Time Status Last Admin Dose Admin Dextrose (Dextrose 50%) 25 ml STAT PRN IV Hypoglycemia BS BTWN 60-69 10/17/17 20:45 11/16/17 20:44 Dextrose (Dextrose 50%) 50 ml STAT PRN IV Hypoglycemia BS<60 MG/DL 10/17/17 20:45 11/16/17 20:44 Latanoprost (Xalatan) 1 drop BEDTIME BOTH EYES 10/18/17 21:00 11/17/17 20:59 10/18/17 20:50 Lorazepam (Ativan) 0.5 mg Q8H PRN ORAL For Anxiety 10/18/17 20:30 10/25/17 20:29 10/18/17 20:51 Metoprolol Tartrate 5 mg/ Dextrose 60 ml @ 120 mls/hr Q6HR IVPB 10/18/17 00:00 11/17/17 00:00 Pantoprazole (Protonix) 40 mg EVERY 12 HOURS IVP 10/17/17 21:00 11/16/17 20:59 10/19/17 09:35 Sodium Chloride 1,000 ml @ 60 mls/hr [id number] IV 10/17/17 21:30 11/16/17 21:29 10/19/17 06:31 Zolpidem Tartrate (Ambien) 5 mg HSPRN PRN ORAL Insomnia 10/18/17 20:30 10/25/17 20:29 10/18/17 22:59 CRISTEL RAMOS DO Oct 19, 2017 15:04
--- NOTE | 2017-10-19 15:24 | Nephrology Progress Note ---
Assessment/Plan Problem List: (1) CKD (chronic kidney disease) stage 4, GFR 15-29 ml/min (2) Profound anemia (3) Upper GI bleed (4) UTI (urinary tract infection) Plan continue gi eval, lab a bit better, avoid fluid overload, epogen Subjective Constitutional: Reports: weakness HEENT: Reports: no symptoms Genitourinary: Reports: no symptoms Neurologic/Psychiatric: Reports: pre-existing deficit Objective Objective Last 24 Hour Vital Signs Date Time Temp Pulse Resp B/P (MAP) Pulse Ox O2 Delivery O2 Flow Rate FiO2 10/19/17 12:00 52 10/19/17 12:00 97.5 50 18 145/72 100 Nasal Cannula 2.0 97.5 10/19/17 12:00 52 141/76 10/19/17 08:00 97.0 56 16 141/76 100 Nasal Cannula 2.0 97.0 10/19/17 08:00 97 10/19/17 07:40 Nasal Cannula 2.0 28 10/19/17 07:40 94 Nasal Cannula 2.0 28 10/19/17 06:00 54 140/54 10/19/17 04:00 97.5 60 19 140/54 100 Nasal Cannula 2.0 97.5 10/19/17 04:00 59 10/19/17 00:00 54 135/71 10/19/17 00:00 97.5 54 19 123/54 100 Nasal Cannula 2.0 97.5 10/19/17 00:00 59 10/18/17 20:00 62 10/18/17 20:00 97.5 60 18 147/71 98 Nasal Cannula 2.0 97.5 10/18/17 19:21 98 Nasal Cannula 2.0 28 10/18/17 19:21 Nasal Cannula 2.0 28 10/18/17 17:39 51 116/69 10/18/17 16:00 97.5 57 18 146/72 98 Nasal Cannula 97.5 10/18/17 16:00 56 Intake and Output 10/18/17 10/19/17 19:00 07:00 Intake Total 1620 ml 990 ml Output Total 600 ml 1000 ml Balance 1020 ml -10 ml Intake Oral 300 ml IV Total 720 ml 690 ml Other 900 ml Output Urine Total 600 ml 1000 ml Laboratory Tests 10/19/17 04:00: White Blood Count 10.8#, Red Blood Count 2.92L, Hemoglobin 9.6L, Hematocrit 27.3L, Mean Corpuscular Volume 94, Mean Corpuscular Hemoglobin 32.8H, Mean Corpuscular Hemoglobin Concent 35.0, Red Cell Distribution Width 14.9H, Platelet Count 196, Mean Platelet Volume 8.1, Neutrophils (%) (Auto) 82.1H, Lymphocytes (%) (Auto) 10.1L, Monocytes (%) (Auto) 6.7, Eosinophils (%) (Auto) 0.7, Basophils (%) (Auto) 0.4, Sodium Level 145, Potassium Level 3.4L, Chloride Level 108H, Carbon Dioxide Level 23, Anion Gap 14, Blood Urea Nitrogen 88H, Creatinine 3.4H, Estimat Glomerular Filtration Rate 13.6, Glucose Level 163H, Hemoglobin A1c 6.9H, Calcium Level 8.5, Total Bilirubin 0.6, Aspartate Amino Transf (AST/SGOT) 15, Alanine Aminotransferase (ALT/SGPT) 21, Alkaline Phosphatase 67, Total Protein 7.3, Albumin 3.2L, Globulin 4.1, Albumin/Globulin Ratio 0.8L, Triglycerides Level 38, Cholesterol Level 103, LDL Cholesterol 61, HDL Cholesterol 44, Cholesterol/HDL Ratio 2.3L, Thyroid Stimulating Hormone (TSH ) 1.791 Height (Feet): 5 Height (Inches): 4.00 Weight (Pounds): 165 General Appearance: no apparent distress, alert EENT: normal ENT inspection Neck: normal alignment Cardiovascular: normal rate, regular rhythm, other - +jvd Respiratory/Chest: lungs clear Abdomen: non tender, soft Extremities: trace edema Neurologic: motor weakness WEI RAO Oct 19, 2017 15:24
[2017-10-19 16:00] VITALS: BP 115/60
[2017-10-19 20:00] VITALS: BP 141/68
[2017-10-19] MEDS: Zolpidem 5mg tab ORAL PRN (20:54)
[2017-10-19] MEDS: Latanoprost 0.005% Opth 2.5ml Soln BOTH EYES SCH (21:01)
[2017-10-19] MEDS: LORazepam 0.5mg tab ORAL PRN (22:48)
[2017-10-20] VITALS: BP 144/75
[2017-10-20] MEDS: Metoprolol Tartrate 5 MG in D5W 55 ML IVPB SCH (00:43)
--- NOTE | 2017-10-20 03:15 | Progress Note ---
DATE: 10/19/2017 CARDIOLOGY PROGRESS NOTE SUBJECTIVE: No new signs of bleeding noted. No chest pain or shortness of breath. Monitor, sinus bradycardia. OBJECTIVE: VITAL SIGNS: Blood pressure 145/72, pulse 50, respiratory rate 18. LUNGS: Bilateral breath sounds. No wheezing or rales. HEART: Regular rhythm. Slow rate. Normal S1, S2. There is a fourth heart sound. ABDOMEN: Soft. No focal tenderness. EXTREMITIES: No edema. LABORATORY DATA: White count 10.8, hemoglobin 9.6. Potassium 3.4, BUN 88, creatinine 3.4. IMPRESSION: Remains critical and guarded 1. Gastrointestinal bleeding. 2. Severe anemia. 3. Acute myocardial infarction. 4. Sinus bradycardia, on beta-antonieta. 5. Cerebrovascular disease with multi-infarct dementia. 6. Acute on chronic renal injury. PLAN: 1. Off anti-platelet and anticoagulant therapy. 2. Transition from IV to oral beta-antonieta and titrate for adequate rate control. 3. Avoid overhydration. 4. Monitor volume status and cardiorenal parameters. 5. Endoscopy anticipated over the next 48 hours. Toni Ariza M.D. DR: Alexys JOB#: [id number] CC: KENYATTA
[2017-10-20 04:00] VITALS: BP 140/60
[2017-10-20 05:27] LABS: ANION GAP 13 mmol/L (5-15); BLOOD UREA NITROGEN 85 mg/dL (7-18); CALCIUM 8.7 MG/DL (8.5-10.1); CARBON DIOXIDE 22 MMOL/L (21-32); CHLORIDE 108 MMOL/L (98-107); CREATININE 3.1 MG/DL (0.55-1.30); SODIUM 143 MMOL/L (136-145)
[2017-10-20 05:29] LABS: BASOPHILS % (AUTO) 0.8 % (0.0-2.0); EOSINOPHILS % (AUTO) 2.6 % (0.0-3.0); HEMATOCRIT 27.8 % (37.0-47.0); HEMOGLOBIN 9.4 G/DL (12.0-16.0); LYMPHOCYTES % (AUTO) 14.6 % (20.0-45.0); MEAN CORPUSCULAR VOLUME 95 FL (80-99); MONOCYTES % (AUTO) 6.4 % (1.0-10.0); NEUTROPHILS % (AUTO) 75.6 % (45.0-75.0); PLATELET COUNT 186 K/UL (150-450); RED BLOOD COUNT 2.92 M/UL (4.20-5.40); RED CELL DISTRIBUTION WIDTH 14.5 % (11.6-14.8); WHITE BLOOD COUNT 7.2 K/UL (4.8-10.8)
[2017-10-20 08:00] VITALS: BP 161/77
--- NOTE | 2017-10-20 08:15 | Pulmonology Progress Note ---
Assessment/Plan Assessment/Plan 1. Acute GI bleed with severe anemia due to blood loss. 2. Acute IN due to demand ischemia, rule out coronary heart disease. 3. CHF with elevated natriuretic peptide. 4. Diabetes. 5. Hypertension, now normotensive, off medication. 6. Hyperlipidemia. 7. History of multiple strokes, on anticoagulants. 8. End-stage renal disease, stage 5, not on dialysis. HD per renal, bnp elevated otday prbc if less than 7 (HGB stable at this time) nebx home meds bp stable EGD saturday po as tolerated check ra sat cxr in am Subjective Constitutional: Reports: no symptoms HEENT: Repors: no symptoms Cardiovascular: Reports: no symptoms Genitourinary: Reports: no symptoms Neurologic: Reports: no symptoms Allergies: Coded Allergies: No Known Allergies (Unverified , 10/17/17) Subjective less confused this am feels better positive uop no cp nv or bleeding not getting oob tolerating po no bleeding Objective Last 24 Hour Vital Signs Date Time Temp Pulse Resp B/P (MAP) Pulse Ox O2 Delivery O2 Flow Rate FiO2 10/20/17 04:00 62 10/20/17 04:00 97.9 60 19 140/60 100 Nasal Cannula 2.0 97.9 10/20/17 00:43 54 144/75 10/20/17 00:00 98.1 54 19 144/75 99 Nasal Cannula 2.0 98.1 10/20/17 00:00 62 10/19/17 20:00 98.4 56 18 141/68 100 Nasal Cannula 2.0 98.4 10/19/17 20:00 59 10/19/17 19:30 98 Nasal Cannula 2.0 28 10/19/17 19:30 Nasal Cannula 2.0 28 10/19/17 18:00 52 145/60 10/19/17 16:00 98.1 53 18 115/60 100 Nasal Cannula 2.0 98.1 10/19/17 15:38 54 10/19/17 12:00 52 10/19/17 12:00 97.5 50 18 145/72 100 Nasal Cannula 2.0 97.5 10/19/17 12:00 52 141/76 Intake and Output 10/19/17 10/20/17 19:00 07:00 Intake Total 640 ml Output Total 1000 ml 800 ml Balance -1000 ml -160 ml Intake Oral 640 ml Output Urine Total 1000 ml 800 ml General Appearance: WD/WN Respiratory/Chest: lungs clear, normal breath sounds Cardiovascular: normal peripheral pulses, regular rhythm Abdomen: normal bowel sounds, soft, non tender, no mass Extremities: no cyanosis Skin: no rash Neurologic/Psychiatric: alert, oriented x 3 Lymphatic: no neck adenopathy Musculoskeletal: normal muscle bulk Microbiology Date/Time Source Procedure Growth Status 10/17/17 16:45 Urine,Clean Catch Urine Culture - Final Escherichia Coli Complete Laboratory Tests 10/20/17 03:24: White Blood Count 7.2, Red Blood Count 2.92L, Hemoglobin 9.4L, Hematocrit 27.8L , Mean Corpuscular Volume 95, Mean Corpuscular Hemoglobin 32.3H, Mean Corpuscular Hemoglobin Concent 33.9, Red Cell Distribution Width 14.5, Platelet Count 186, Mean Platelet Volume 6.7, Neutrophils (%) (Auto) 75.6H, Lymphocytes ( %) (Auto) 14.6L, Monocytes (%) (Auto) 6.4, Eosinophils (%) (Auto) 2.6, Basophils (%) (Auto) 0.8, Sodium Level 143, Potassium Level 4.0, Chloride Level 108H, Carbon Dioxide Level 22, Anion Gap 13, Blood Urea Nitrogen 85H, Creatinine 3.1H, Estimat Glomerular Filtration Rate 15.1, Glucose Level 212H, Calcium Level 8.7, Magnesium Level 2.2, Pro-B-Type Natriuretic Peptide 53066R Current Medications Medications (Trade) Dose Ordered Sig/Leigh Route PRN Reason Start Time Stop Time Status Last Admin Dose Admin Dextrose (Dextrose 50%) 25 ml STAT PRN IV Hypoglycemia BS BTWN 60-69 10/17/17 20:45 11/16/17 20:44 Dextrose (Dextrose 50%) 50 ml STAT PRN IV Hypoglycemia BS<60 MG/DL 10/17/17 20:45 11/16/17 20:44 Latanoprost (Xalatan) 1 drop BEDTIME BOTH EYES 10/18/17 21:00 11/17/17 20:59 10/19/17 21:01 Lorazepam (Ativan) 0.5 mg Q8H PRN ORAL For Anxiety 10/18/17 20:30 10/25/17 20:29 10/19/17 22:48 Metoprolol Tartrate (Lopressor) 25 mg Q12HR ORAL 10/20/17 09:00 11/19/17 08:59 Pantoprazole (Protonix) 40 mg EVERY 12 HOURS IVP 10/17/17 21:00 11/16/17 20:59 10/19/17 20:53 Zolpidem Tartrate (Ambien) 5 mg HSPRN PRN ORAL Insomnia 10/18/17 20:30 10/25/17 20:29 10/19/17 20:54 CRISTEL RAMOS DO Oct 20, 2017 08:15
[2017-10-20] MEDS: Pantoprazole Inj IVP SCH ×2 (08:43→21:24)
[2017-10-20] MEDS ORDERED: Metoprolol 25mg tab ORAL SCH (09:00)
[2017-10-20] MEDS ORDERED: NovoLOG Insulin Flexpen SUBQ SCH (11:30)
--- NOTE | 2017-10-20 11:58 | Nephrology Progress Note ---
Assessment/Plan Problem List: (1) CKD (chronic kidney disease) stage 4, GFR 15-29 ml/min (2) Profound anemia (3) Upper GI bleed (4) UTI (urinary tract infection) Plan continue gi eval, lab a bit better, avoid fluid overload, epogen, lasix 40 iv on 10/20, start hydralazine for bp Subjective Constitutional: Reports: weakness HEENT: Reports: no symptoms Genitourinary: Reports: no symptoms Neurologic/Psychiatric: Reports: pre-existing deficit Objective Objective Last 24 Hour Vital Signs Date Time Temp Pulse Resp B/P (MAP) Pulse Ox O2 Delivery O2 Flow Rate FiO2 10/20/17 08:50 62 161/77 10/20/17 08:00 97.2 60 20 161/77 100 97.2 10/20/17 07:52 62 10/20/17 04:00 62 10/20/17 04:00 97.9 60 19 140/60 100 Nasal Cannula 2.0 97.9 10/20/17 00:43 54 144/75 10/20/17 00:00 98.1 54 19 144/75 99 Nasal Cannula 2.0 98.1 10/20/17 00:00 62 10/19/17 20:00 98.4 56 18 141/68 100 Nasal Cannula 2.0 98.4 10/19/17 20:00 59 10/19/17 19:30 98 Nasal Cannula 2.0 28 10/19/17 19:30 Nasal Cannula 2.0 28 10/19/17 18:00 52 145/60 10/19/17 16:00 98.1 53 18 115/60 100 Nasal Cannula 2.0 98.1 10/19/17 15:38 54 10/19/17 12:00 52 10/19/17 12:00 97.5 50 18 145/72 100 Nasal Cannula 2.0 97.5 10/19/17 12:00 52 141/76 Intake and Output 10/19/17 10/20/17 19:00 07:00 Intake Total 640 ml Output Total 1000 ml 800 ml Balance -1000 ml -160 ml Intake Oral 640 ml Output Urine Total 1000 ml 800 ml Laboratory Tests 10/20/17 03:24: White Blood Count 7.2, Red Blood Count 2.92L, Hemoglobin 9.4L, Hematocrit 27.8L , Mean Corpuscular Volume 95, Mean Corpuscular Hemoglobin 32.3H, Mean Corpuscular Hemoglobin Concent 33.9, Red Cell Distribution Width 14.5, Platelet Count 186, Mean Platelet Volume 6.7, Neutrophils (%) (Auto) 75.6H, Lymphocytes ( %) (Auto) 14.6L, Monocytes (%) (Auto) 6.4, Eosinophils (%) (Auto) 2.6, Basophils (%) (Auto) 0.8, Sodium Level 143, Potassium Level 4.0, Chloride Level 108H, Carbon Dioxide Level 22, Anion Gap 13, Blood Urea Nitrogen 85H, Creatinine 3.1H, Estimat Glomerular Filtration Rate 15.1, Glucose Level 212H, Calcium Level 8.7, Magnesium Level 2.2, Pro-B-Type Natriuretic Peptide 12476O Height (Feet): 5 Height (Inches): 4.00 Weight (Pounds): 166 General Appearance: no apparent distress EENT: other - periorbital edema Neck: normal alignment Cardiovascular: regular rhythm Respiratory/Chest: lungs clear Abdomen: non tender, soft Extremities: trace edema Neurologic: motor weakness WEI RAO Oct 20, 2017 11:58
[2017-10-20 12:00] VITALS: BP 152/77
[2017-10-20] MEDS ORDERED: HydrALAZINE 50mg tab ORAL SCH (12:00)
--- NOTE | 2017-10-20 13:14 | General Progress Note ---
Assessment/Plan Assessment/Plan Assessment: - GI Bleed - Anemia - NIDDM - CRF - Recent h/o CVA - on ASA and Eliquis Recommendations: -po as tolerated - monitor CBC - Eliquis and Aspirin on hold - EGD Saturday Subjective Allergies: Coded Allergies: No Known Allergies (Unverified , 10/17/17) Subjective Feels OK no new symptoms H&H noted tolerating PO for EGD tomorrow Objective Last 24 Hour Vital Signs Date Time Temp Pulse Resp B/P (MAP) Pulse Ox O2 Delivery O2 Flow Rate FiO2 10/20/17 12:42 152/77 10/20/17 12:00 97.3 59 20 152/77 100 97.3 10/20/17 08:50 62 161/77 10/20/17 08:00 97.2 60 20 161/77 100 97.2 10/20/17 07:52 62 10/20/17 04:00 62 10/20/17 04:00 97.9 60 19 140/60 100 Nasal Cannula 2.0 97.9 10/20/17 00:43 54 144/75 10/20/17 00:00 98.1 54 19 144/75 99 Nasal Cannula 2.0 98.1 10/20/17 00:00 62 10/19/17 20:00 98.4 56 18 141/68 100 Nasal Cannula 2.0 98.4 10/19/17 20:00 59 10/19/17 19:30 98 Nasal Cannula 2.0 28 10/19/17 19:30 Nasal Cannula 2.0 28 10/19/17 18:00 52 145/60 10/19/17 16:00 98.1 53 18 115/60 100 Nasal Cannula 2.0 98.1 10/19/17 15:38 54 Intake and Output 10/19/17 10/20/17 19:00 07:00 Intake Total 640 ml Output Total 1000 ml 800 ml Balance -1000 ml -160 ml Intake Oral 640 ml Output Urine Total 1000 ml 800 ml Laboratory Tests 10/20/17 03:24: White Blood Count 7.2, Red Blood Count 2.92L, Hemoglobin 9.4L, Hematocrit 27.8L , Mean Corpuscular Volume 95, Mean Corpuscular Hemoglobin 32.3H, Mean Corpuscular Hemoglobin Concent 33.9, Red Cell Distribution Width 14.5, Platelet Count 186, Mean Platelet Volume 6.7, Neutrophils (%) (Auto) 75.6H, Lymphocytes ( %) (Auto) 14.6L, Monocytes (%) (Auto) 6.4, Eosinophils (%) (Auto) 2.6, Basophils (%) (Auto) 0.8, Sodium Level 143, Potassium Level 4.0, Chloride Level 108H, Carbon Dioxide Level 22, Anion Gap 13, Blood Urea Nitrogen 85H, Creatinine 3.1H, Estimat Glomerular Filtration Rate 15.1, Glucose Level 212H, Calcium Level 8.7, Magnesium Level 2.2, Pro-B-Type Natriuretic Peptide 63011Q Height (Feet): 5 Height (Inches): 4.00 Weight (Pounds): 166 Objective WDWN NCAT supple CTA RRR abd soft ND NT trace edema non focal ATTILA BILL Oct 20, 2017 13:14
[2017-10-20 16:00] VITALS: BP 152/78
[2017-10-20] MEDS: NovoLOG Insulin Flexpen SUBQ SCH ×2 (17:37→21:27)
[2017-10-20] MEDS: HydrALAZINE 50mg tab ORAL SCH (17:38)
[2017-10-20 20:00] VITALS: BP 147/73
[2017-10-20] MEDS: Metoprolol 25mg tab ORAL SCH (21:00)
--- NOTE | 2017-10-20 21:00 | Progress Note ---
DATE: 10/20/2017 CARDIOLOGY PROGRESS NOTE SUBJECTIVE: No chest pain. No shortness of breath. Hemoglobin remained stable, status post several units of packed red blood cells. OBJECTIVE: VITAL SIGNS: Blood pressure 140/60, pulse 60, respiratory rate 19. Monitored rhythm sinus . LUNGS: Coarse breath sounds. No wheezing. HEART: Regular rhythm and rate. Normal S1, S2. There is a fourth heart sound. ABDOMEN: Soft. No focal tenderness. EXTREMITIES: No edema. LABORATORY DATA: Sodium 143, potassium 4, bicarbonate 22, BUN 85, creatinine 3.1, magnesium 2.2. Pro-natriuretic peptide has increased to 12,000. White count 7.3, hemoglobin 9.4. IMPRESSION: Remains Critical and Guarded 1. Acute GI bleed. 2. Severe anemia. 3. Acute myocardial infarction. 4. Hypertensive heart disease. 5. History of cerebrovascular accident. 6. Type 2 diabetes mellitus. 7. Acute on chronic renal failure. PLAN: 1. Continue to hold anti-platelet and anticoagulation. 2. Await EGD, stable at this time for EGD. 3. Continue beta-antonieta. 4. Respiratory hygiene. 5. Titrate antihypertensives based on clinical parameters. 6. We will tighten blood pressure control further following completion of GI workup. Toni Ariza M.D. DR: Alexys JOB#: [id number] CC: KENYATTA
[2017-10-20] MEDS: Latanoprost 0.005% Opth 2.5ml Soln BOTH EYES SCH (21:25)
[2017-10-20] MEDS ORDERED: Dicyclomine HCl 10mg/5ml oral soln ORAL PRN (21:30)
[2017-10-20] MEDS: Zolpidem 5mg tab ORAL PRN (22:04)
[2017-10-21] VITALS (9 sets, daily range): BP systolic 127–163; BP diastolic 53–80
[2017-10-21] MEDS: HydrALAZINE 50mg tab ORAL SCH ×4 (00:34→18:14)
[2017-10-21] MEDS: NovoLOG Insulin Flexpen SUBQ SCH ×4 (06:28→21:34)
[2017-10-21] MEDS: Metoprolol 25mg tab ORAL SCH ×2 (09:06→21:28)
[2017-10-21] MEDS: Pantoprazole Inj IVP SCH ×2 (09:06→21:26)
--- NOTE | 2017-10-21 09:51 | Cardiology Report ---
APPROVED REPORT EXAM: Two-dimensional and M-mode echocardiogram with Doppler and color Doppler. INDICATION Congestive Heart Failure M-Mode DIMENSIONS IVSd1.2 (0.7-1.1cm)Left Atrium (MM)4.7 (1.6-4.0cm) LVDd4.8 (3.5-5.6cm)Aortic Root2.5 (2.0-3.7cm) PWd1.5 (0.7-1.1cm)Aortic Cusp Exc.1.7 (1.5-2.0cm) LVDs3.1 (2.5-4.0cm) PWs2.2 cm Normal left ventricular chamber size, systolic function and wall motion. Left ventricular ejection fraction estimated to be 55 %. Mild left ventricular hypertrophy. No evidence of pericardial effusion. Mild bi-atrial enlargement. Right ventricular chamber sizes is within normal limits. Focal aortic valve sclerosis with adequate cusp excursion. Mildly thickened mitral valve leaflets with normal excursion. Mild mitral annulus and aortic root calcification. Normal pulmonic valve structure. Normal tricuspid valve structure. IVC dilated at 3.0 without physiological collapse, estimated RAP is 20 mmHg. A color flow and spectral Doppler study was performed and revealed: No aortic insufficiency. Moderate to severe mitral regurgitation. Mitral inflow indicates increased left atrial pressure, suggestive restrictive pattern (Grade III). Severe tricuspid regurgitation. Tricuspid systolic velocities suggests peak right ventricular systolic pressure of 101 mmHg, consistent with severe pulmonary hypertension. Severe pulmonic regurgitation present.
[2017-10-21 10:01] LABS: BASOPHILS % (AUTO) 0.5 % (0.0-2.0); EOSINOPHILS % (AUTO) 3.2 % (0.0-3.0); LYMPHOCYTES % (AUTO) 11.2 % (20.0-45.0); MEAN CORPUSCULAR VOLUME 96 FL (80-99); MONOCYTES % (AUTO) 6.2 % (1.0-10.0); NEUTROPHILS % (AUTO) 78.9 % (45.0-75.0); PLATELET COUNT 178 K/UL (150-450); RED BLOOD COUNT 2.82 M/UL (4.20-5.40); RED CELL DISTRIBUTION WIDTH 14.7 % (11.6-14.8); WHITE BLOOD COUNT 8.2 K/UL (4.8-10.8)
[2017-10-21 10:40] LABS: ANION GAP 12 mmol/L (5-15); BLOOD UREA NITROGEN 73 mg/dL (7-18); CALCIUM 8.8 MG/DL (8.5-10.1); CARBON DIOXIDE 25 MMOL/L (21-32); CHLORIDE 108 MMOL/L (98-107); POTASSIUM 3.6 MMOL/L (3.5-5.1); SODIUM 145 MMOL/L (136-145)
--- NOTE | 2017-10-21 11:16 | Anethesia Preoperative Eval ---
Anesthesia Pre-op PMH/ROS General Date of Evaluation: Oct 21, 2017 Anesthesiologist: Gael ASA Score: ASA 3 Mallampati Score Class I : Soft palate, uvula, fauces, pillars visible Class II: Soft palate, uvula, fauces visible Class III: Soft palate, base of uvula visible Class IV: Only hard plate visible Mallampati Classification: Class III Surgeon: Rodriguez Diagnosis: GI bleed Surgical Procedure: EGD Anesthesia History: none Family History: no anesthesia problems Allergies: Coded Allergies: No Known Allergies (Unverified , 10/17/17) Medications: see eMAR Past Medical History Cardiovascular: Reports: HTN, other - CHF; Denies: CAD, MA, valve dz, arrhythmia Pulmonary: Denies: asthma, COPD, CELENA, other Gastrointestinal/Genitourinary: Denies: GERD, CRI, ESRD, other Neurologic/Psychiatric: Reports: CVA; Denies: dementia, depression/anxiety, TIA, other Endocrine: Reports: DM; Denies: hypothyroidism, steroids, other HEENT: Denies: cataract (L), cataract (R), glaucoma, NATIVE (L), NATIVE (R), other Hematology/Immune: Denies: anemia, DVT, bleeding disorder, other Musculoskeletal/Integumentary: Denies: OA, RA, DJD, DDD, edema, other PSxH Narrative: Denies Anesthesia Pre-op Phys. Exam Physician Exam Last Vital Signs Date Time Temp Pulse Resp B/P (MAP) Pulse Ox O2 Delivery O2 Flow Rate FiO2 10/21/17 09:06 72 142/69 10/21/17 08:00 98.0 20 94 Nasal Cannula 2.0 98.0 10/19/17 19:30 28 Constitutional: NAD Cardiovascular: RRR Respiratory: CTA Airway Exam Mallampati Score: Class III MO: limited ROM: limited Anesthesia Pre-op A/P Labs Hematology Test 10/21/17 06:20 White Blood Count 8.2 K/UL (4.8-10.8) Red Blood Count 2.82 M/UL (4.20-5.40) L Hemoglobin 9.0 G/DL (12.0-16.0) L Hematocrit 27.0 % (37.0-47.0) L Mean Corpuscular Volume 96 FL (80-99) Mean Corpuscular Hemoglobin 31.8 PG (27.0-31.0) H Mean Corpuscular Hemoglobin Concent 33.2 G/DL (32.0-36.0) Red Cell Distribution Width 14.7 % (11.6-14.8) Platelet Count 178 K/UL (150-450) Mean Platelet Volume 7.0 FL (6.5-10.1) Neutrophils (%) (Auto) 78.9 % (45.0-75.0) H Lymphocytes (%) (Auto) 11.2 % (20.0-45.0) L Monocytes (%) (Auto) 6.2 % (1.0-10.0) Eosinophils (%) (Auto) 3.2 % (0.0-3.0) H Basophils (%) (Auto) 0.5 % (0.0-2.0) Chemistry Test 10/21/17 06:20 Sodium Level 145 MMOL/L (136-145) Potassium Level 3.6 MMOL/L (3.5-5.1) Chloride Level 108 MMOL/L (98-107) H Carbon Dioxide Level 25 MMOL/L (21-32) Anion Gap 12 mmol/L (5-15) Blood Urea Nitrogen 73 mg/dL (7-18) H Creatinine 3.0 MG/DL (0.55-1.30) H Estimat Glomerular Filtration Rate 15.7 mL/min (>60) Glucose Level 223 MG/DL (74-106) H Calcium Level 8.8 MG/DL (8.5-10.1) Studies Pre-op Studies: EKG - sr Risk Assessment & Plan Assessment: ASA III Plan: MAC Status Change Before Surgery: No Pre-Antibiotics Drug: N/A GUALBERTO FORREST M.D. Oct 21, 2017 11:16
[2017-10-21] MEDS ORDERED: LR 1000ml 1,000 ML IVLG SCH (11:17)
--- NOTE | 2017-10-21 11:18 | Immediate Post-Op Evaluation ---
Immediate Post-Op Evalulation Immediate Post-Op Evalulation Procedure: EGD Date of Evaluation: Oct 21, 2017 Time of Evaluation: 12:34 IV Fluids: 200 Blood Products: 0 Estimated Blood Loss: 0 Urinary Output: 0 Blood Pressure Systolic: 163 Blood Pressure Diastolic: 80 Pulse Rate: 67 Respiratory Rate: 16 O2 Sat by Pulse Oximetry: 100 Temperature (Fahrenheit): 98.1 Pain Score (1-10): 0 Nausea: No Vomiting: No Complications 0 Patient Status: awake, reacts, patent, none Hydration Status: adequate Drug: N/A GUALBERTO FORREST M.D. Oct 21, 2017 11:18
[2017-10-21] MEDS ORDERED: DiphenhydrAMINE 50mg/ml Inj IVP PRN (11:30)
[2017-10-21] MEDS ORDERED: NS 500ML IV ONE (11:55)
[2017-10-21] MEDS ORDERED: LR 1000ml ONE (12:00)
[2017-10-21] MEDS ORDERED: Propofol 200mg/20ml IV ONE (12:00)
[2017-10-21] MEDS ORDERED: Lidocaine 1% MPF 10mg/ml 5ml ONE (12:00)
--- NOTE | 2017-10-21 12:07 | Pre-Procedure Note/Attestation ---
Pre-Procedure Note/Attestation Complete Prior to Procedure Planned Procedure: not applicable Procedure Narrative: EGD Indications for Procedure Pre-Operative Diagnosis: GIB Attestation I attest that I discussed the nature of the procedure; its benefits; risks and complications; and alternatives (and the risks and benefits of such alternatives ), prior to the procedure, with the patient (or the patient's legal scheduling representative). I attest that, if there was a reasonable possibility of needing a blood transfusion, the patient (or the patient's legal scheduling representative) was given the [facility] standardized written summary, pursuant to the Luis [employer] Beck[employer] Blood Safety Act ([place] Health and Safety Code # 1645, as amended). I attest that I re-evaluated the patient just prior to the surgery and that there has been no change in the patient's H&P, except as documented below: ATTILA BILL Oct 21, 2017 12:07
--- NOTE | 2017-10-21 12:10 | General Progress Note ---
Assessment/Plan Assessment/Plan Assessment: - GI Bleed - Anemia - NIDDM - CRF - Recent h/o CVA - on ASA and Eliquis Recommendations: - NPO - monitor CBC - Eliquis and Aspirin on hold - EGD today ENDOSCOPY FINDINGS Normal EGD. No lesion to explain GI Bleed Will proceed with colonoscopy on Wed am. Subjective Allergies: Coded Allergies: No Known Allergies (Unverified , 10/17/17) Subjective Feels OK no new symptoms H&H noted NPO for EGD Objective Last 24 Hour Vital Signs Date Time Temp Pulse Resp B/P (MAP) Pulse Ox O2 Delivery O2 Flow Rate FiO2 10/21/17 09:06 72 142/69 10/21/17 08:00 98.0 72 20 142/69 94 Nasal Cannula 2.0 98.0 10/21/17 06:25 155/78 10/21/17 04:00 97.3 66 22 155/78 100 Nasal Cannula 2.0 97.3 10/21/17 04:00 65 10/21/17 00:34 150/79 10/21/17 00:00 97.7 69 18 150/79 97 Nasal Cannula 2.0 97.7 10/20/17 23:50 67 10/20/17 21:00 60 147/73 10/20/17 20:00 98.2 60 18 147/73 99 Nasal Cannula 2.0 98.2 10/20/17 19:39 62 10/20/17 17:38 152/78 10/20/17 16:00 60 10/20/17 16:00 97.9 58 20 152/78 96 Nasal Cannula 2.0 97.9 10/20/17 12:42 152/77 Intake and Output 10/20/17 10/21/17 19:00 07:00 Intake Total 420 ml 340 ml Output Total 800 ml 1200 ml Balance -380 ml -860 ml Intake Oral 420 ml 340 ml Output Urine Total 800 ml 1200 ml Laboratory Tests 10/21/17 06:20: White Blood Count 8.2, Red Blood Count 2.82L, Hemoglobin 9.0L, Hematocrit 27.0L , Mean Corpuscular Volume 96, Mean Corpuscular Hemoglobin 31.8H, Mean Corpuscular Hemoglobin Concent 33.2, Red Cell Distribution Width 14.7, Platelet Count 178, Mean Platelet Volume 7.0, Neutrophils (%) (Auto) 78.9H, Lymphocytes ( %) (Auto) 11.2L, Monocytes (%) (Auto) 6.2, Eosinophils (%) (Auto) 3.2H, Basophils (%) (Auto) 0.5, Sodium Level 145, Potassium Level 3.6, Chloride Level 108H, Carbon Dioxide Level 25, Anion Gap 12, Blood Urea Nitrogen 73H, Creatinine 3.0H, Estimat Glomerular Filtration Rate 15.7, Glucose Level 223H, Calcium Level 8.8 Height (Feet): 5 Height (Inches): 4.00 Weight (Pounds): 163 Objective WDWN NCAT supple CTA RRR abd soft ND NT trace edema non focal ATTILA BILL Oct 21, 2017 12:10
--- NOTE | 2017-10-21 12:31 | Diagnostic Imaging Report ---
Indication: Reason For Exam: COPD Technique: One view of the chest Comparison: 10/17/2017 Findings: Lungs and pleural spaces are clear. Heart size is normal. No significant interim change Impression: No acute process
--- NOTE | 2017-10-21 12:32 | 48 Hour Post Anesthesia Eval ---
Post Anesthesia Evaluation Procedure: EGD Date of Evaluation: Oct 21, 2017 Airway: patent Nausea: No Vomiting: No Pain Intensity: 0 Hydration Status: adequate Cardiopulmonary Status: at baseline Mental Status/LOC: patient returned to baseline Post-Anesthesia Complications: 0 Follow-up care needed: N/A - further care as per primary team GUALBERTO FORREST M.D. Oct 21, 2017 12:32
--- NOTE | 2017-10-21 12:45 | Progress Note ---
DATE: 10/21/2017 CARDIOLOGY PROGRESS NOTE SUBJECTIVE: The patient is without chest pain or shortness of breath. No new bleeding noted. She remains off anti-platelet and anticoagulant therapy. She has received several units of packed red blood cells. OBJECTIVE: VITAL SIGNS: Blood pressure 142/69, pulse 72, respirations 20. Monitored rhythm sinus. LUNGS: Clear. CARDIAC: Regular rhythm and rate. Normal S1, S2 with a fourth heart sound. ABDOMEN: Soft, nontender. Slightly distended. No guarding. EXTREMITIES: With trace edema. LABORATORY DATA: White count 8.2, hemoglobin 9. Potassium 3.6, BUN 73, creatinine 3. Pro-natriuretic peptide yesterday was 12,000 which had increased significantly. IMPRESSION: 1. Acute gastrointestinal bleeding. 2. Acute myocardial infarction. 3. Severe anemia, status post transfusion. 4. Recovered shock due to acute blood loss. 5. Hypertensive heart disease with increasing blood pressure trend. 6. History of cerebrovascular accident with left-sided weakness. 7. Type 2 diabetes mellitus. 8. Acute on chronic renal failure, improved. PLAN: 1. Stable from cardiovascular standpoint to proceed with EGD at this time. 2. Hold anti-platelet and anticoagulant, pending results of the study. 3. Maintain oral beta-blockers and titrate antihypertensives accordingly. 4. May need to add diuretic therapy soon. 5. We will follow clinical parameters and cardiorenal function closely. Toni Ariza M.D. DR: SHAYAN JOB#: [id number] CC:
--- NOTE | 2017-10-21 12:56 | General Progress Note ---
Assessment/Plan Assessment/Plan 1. Acute gastrointestinal bleeding. 2. Acute myocardial infarction. 3. Severe anemia, status post transfusion. 4. Recovered shock due to acute blood loss. 5. Hypertensive heart disease with increasing blood pressure trend. 6. History of cerebrovascular accident with left-sided weakness. 7. Type 2 diabetes mellitus. 8. Acute on chronic renal failure, improved. 9. UTI EGD no ACs Keflex CBC stable Subjective Constitutional: Reports: malaise; Denies: fever Cardiovascular: Denies: chest pain Respiratory: Denies: shortness of breath Allergies: Coded Allergies: No Known Allergies (Unverified , 10/17/17) Objective Last 24 Hour Vital Signs Date Time Temp Pulse Resp B/P (MAP) Pulse Ox O2 Delivery O2 Flow Rate FiO2 10/21/17 12:32 208.6 67 16 100 10/21/17 09:06 72 142/69 10/21/17 08:00 98.0 72 20 142/69 94 Nasal Cannula 2.0 98.0 10/21/17 06:25 155/78 10/21/17 04:00 97.3 66 22 155/78 100 Nasal Cannula 2.0 97.3 10/21/17 04:00 65 10/21/17 00:34 150/79 10/21/17 00:00 97.7 69 18 150/79 97 Nasal Cannula 2.0 97.7 10/20/17 23:50 67 10/20/17 21:00 60 147/73 10/20/17 20:00 98.2 60 18 147/73 99 Nasal Cannula 2.0 98.2 10/20/17 19:39 62 10/20/17 17:38 152/78 10/20/17 16:00 60 10/20/17 16:00 97.9 58 20 152/78 96 Nasal Cannula 2.0 97.9 Intake and Output 10/20/17 10/21/17 19:00 07:00 Intake Total 420 ml 340 ml Output Total 800 ml 1200 ml Balance -380 ml -860 ml Intake Oral 420 ml 340 ml Output Urine Total 800 ml 1200 ml Laboratory Tests 10/21/17 06:20: White Blood Count 8.2, Red Blood Count 2.82L, Hemoglobin 9.0L, Hematocrit 27.0L , Mean Corpuscular Volume 96, Mean Corpuscular Hemoglobin 31.8H, Mean Corpuscular Hemoglobin Concent 33.2, Red Cell Distribution Width 14.7, Platelet Count 178, Mean Platelet Volume 7.0, Neutrophils (%) (Auto) 78.9H, Lymphocytes ( %) (Auto) 11.2L, Monocytes (%) (Auto) 6.2, Eosinophils (%) (Auto) 3.2H, Basophils (%) (Auto) 0.5, Sodium Level 145, Potassium Level 3.6, Chloride Level 108H, Carbon Dioxide Level 25, Anion Gap 12, Blood Urea Nitrogen 73H, Creatinine 3.0H, Estimat Glomerular Filtration Rate 15.7, Glucose Level 223H, Calcium Level 8.8 Height (Feet): 5 Height (Inches): 4.00 Weight (Pounds): 163 General Appearance: no apparent distress Cardiovascular: normal rate Respiratory/Chest: lungs clear Abdomen: non tender Eduardo Russ MD Oct 21, 2017 12:56
[2017-10-21] MEDS: Cephalexin 250mg Cap ORAL SCH ×2 (14:40→21:26)
--- NOTE | 2017-10-21 15:59 | Nephrology Progress Note ---
Assessment/Plan Problem List: (1) CKD (chronic kidney disease) stage 4, GFR 15-29 ml/min (2) Profound anemia (3) Upper GI bleed (4) UTI (urinary tract infection) Plan continue gi eval, lab a bit better, avoid fluid overload, epogen, lasix 40 iv on 10/20+10/21 , start hydralazine , add amlodipine for bp Subjective Constitutional: Reports: weakness HEENT: Reports: no symptoms Genitourinary: Reports: no symptoms Neurologic/Psychiatric: Reports: pre-existing deficit Objective Objective Last 24 Hour Vital Signs Date Time Temp Pulse Resp B/P (MAP) Pulse Ox O2 Delivery O2 Flow Rate FiO2 10/21/17 13:31 159/73 10/21/17 12:50 98.0 59 16 161/73 100 Nasal Cannula 2.0 98.0 10/21/17 12:40 59 15 156/75 100 Nasal Cannula 2.0 10/21/17 12:35 60 13 159/73 100 Nasal Cannula 2.0 10/21/17 12:32 208.6 67 16 100 10/21/17 12:29 98.1 62 14 163/80 100 Nasal Cannula 2.0 98.1 10/21/17 12:00 68 10/21/17 09:06 72 142/69 10/21/17 08:00 72 10/21/17 08:00 98.0 72 20 142/69 94 Nasal Cannula 2.0 98.0 10/21/17 06:25 155/78 10/21/17 04:00 97.3 66 22 155/78 100 Nasal Cannula 2.0 97.3 10/21/17 04:00 65 10/21/17 00:34 150/79 10/21/17 00:00 97.7 69 18 150/79 97 Nasal Cannula 2.0 97.7 10/20/17 23:50 67 10/20/17 21:00 60 147/73 10/20/17 20:00 98.2 60 18 147/73 99 Nasal Cannula 2.0 98.2 10/20/17 19:39 62 10/20/17 17:38 152/78 10/20/17 16:00 60 10/20/17 16:00 97.9 58 20 152/78 96 Nasal Cannula 2.0 97.9 Intake and Output 10/20/17 10/21/17 19:00 07:00 Intake Total 420 ml 340 ml Output Total 800 ml 1200 ml Balance -380 ml -860 ml Intake Oral 420 ml 340 ml Output Urine Total 800 ml 1200 ml Laboratory Tests 10/21/17 06:20: White Blood Count 8.2, Red Blood Count 2.82L, Hemoglobin 9.0L, Hematocrit 27.0L , Mean Corpuscular Volume 96, Mean Corpuscular Hemoglobin 31.8H, Mean Corpuscular Hemoglobin Concent 33.2, Red Cell Distribution Width 14.7, Platelet Count 178, Mean Platelet Volume 7.0, Neutrophils (%) (Auto) 78.9H, Lymphocytes ( %) (Auto) 11.2L, Monocytes (%) (Auto) 6.2, Eosinophils (%) (Auto) 3.2H, Basophils (%) (Auto) 0.5, Sodium Level 145, Potassium Level 3.6, Chloride Level 108H, Carbon Dioxide Level 25, Anion Gap 12, Blood Urea Nitrogen 73H, Creatinine 3.0H, Estimat Glomerular Filtration Rate 15.7, Glucose Level 223H, Calcium Level 8.8 Height (Feet): 5 Height (Inches): 4.00 Weight (Pounds): 163 General Appearance: no apparent distress, alert EENT: other - mild periorbital edema Neck: normal alignment Cardiovascular: regular rhythm Respiratory/Chest: lungs clear Abdomen: non tender, soft, no organomegaly Extremities: trace edema 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
--- NOTE | 2017-10-21 18:00 | Operative Note - Dictated ---
DATE OF OPERATION: 10/21/2017 GASTROENTEROLOGY PROCEDURE REPORT PROCEDURE: Upper gastrointestinal endoscopy. SURGEON: Veronika Frias M.D. ANESTHESIA: Please see the separate anesthesiologist notes for details. PRE-ENDOSCOPIC DIAGNOSIS: Anemia and suspected GI bleeding. POST-ENDOSCOPIC DIAGNOSIS: Normal upper endoscopy. DESCRIPTION OF PROCEDURE: The procedure, its risks, indications, alternatives, and possible complications were explained and informed consent was obtained. The patient was then sedated and a diagnostic upper endoscope was introduced into oropharynx and advanced through the duodenum without difficulty. The endoscope was then gradually withdrawn and the mucosa examined carefully. Examination of the upper gastrointestinal mucosa did not reveal any abnormalities. The endoscope was removed and the patient was sent to recovery in good condition. COMPLICATIONS: None. RECOMMENDATION: 1. Monitor CBC. 2. Consider colonoscopy to complete gastrointestinal workup. Veronika Frias M.D. DR: MELVI JOB#: [id number] CC:
[2017-10-21] MEDS ORDERED: Sorbitol Solution UD 30ml ORAL SCH (19:00)
--- NOTE | 2017-10-21 21:03 | Endoscopy Procedure Note ---
Endoscopy Procedure Note General Indication for Procedure: anemia Procedures Performed: EGD Operative Findings/Diagnosis: normal Specimen: none Pt Tolerated Procedure Well: Yes Estimated Blood Loss: none Anesthesia Anesthesiologist: see report Anesthesia: MAC Medications Medication Given: see anesthesia record Inserted Devices Implant(s) used?: No GI Core Measures 50 yrs or older w/o bx or poly: Not Applicable 10yrs. F/U not recommended: Not Applicable If not recommended, why?: ATTILA BILL Oct 21, 2017 21:03
--- NOTE | 2017-10-21 21:04 | Brief Operative Note ---
Immediate Post Operative Note Operative Note Chief Complaint: anemia Pre-op Diagnosis: GIB Procedure: egd Post-op Diagnosis: Normal EGD. No lesion to explain GI Bleed Will proceed with colonoscopy on Sat am. Surgeon: ralf Anesthesiologist: see report Specimen: yes Complications: none Condition: stable Fluids: see report Estimated Blood Loss: none Drains: none Implant(s) used?: No ATTIAL BILL Oct 21, 2017 21:04
[2017-10-21] MEDS: Zolpidem 5mg tab ORAL PRN (21:27)
[2017-10-21] MEDS: Latanoprost 0.005% Opth 2.5ml Soln BOTH EYES SCH (21:33)
[2017-10-22] VITALS (7 sets, daily range): BP systolic 133–148; BP diastolic 60–78
[2017-10-22] MEDS: HydrALAZINE 50mg tab ORAL SCH ×4 (00:43→17:27)
[2017-10-22] MEDS: Cephalexin 250mg Cap ORAL SCH ×3 (06:50→22:00)
[2017-10-22] MEDS: NovoLOG Insulin Flexpen SUBQ SCH ×4 (06:54→22:01)
[2017-10-22] MEDS ORDERED: Nulytely 4L ORAL SCH (08:00)
[2017-10-22] MEDS: Pantoprazole Inj IVP SCH ×2 (08:11→21:59)
[2017-10-22] MEDS: Metoprolol 25mg tab ORAL SCH ×2 (08:11→22:00)
[2017-10-22 09:11] LABS: BASOPHILS % (AUTO) 0.6 % (0.0-2.0); EOSINOPHILS % (AUTO) 3.1 % (0.0-3.0); HEMATOCRIT 28.8 % (37.0-47.0); HEMOGLOBIN 9.6 G/DL (12.0-16.0); LYMPHOCYTES % (AUTO) 12.7 % (20.0-45.0); MEAN CORPUSCULAR VOLUME 95 FL (80-99); MONOCYTES % (AUTO) 6.9 % (1.0-10.0); NEUTROPHILS % (AUTO) 76.6 % (45.0-75.0); PLATELET COUNT 222 K/UL (150-450); RED BLOOD COUNT 3.02 M/UL (4.20-5.40); RED CELL DISTRIBUTION WIDTH 13.8 % (11.6-14.8); WHITE BLOOD COUNT 6.4 K/UL (4.8-10.8)
[2017-10-22 09:30] LABS: ALANINE AMINOTRANSFERASE 28 U/L (12-78); ALBUMIN/GLOBULIN RATIO 0.6 (1.0-2.7); ALKALINE PHOSPHATASE 87 U/L (46-116); ANION GAP 13 mmol/L (5-15); ASPARTATE AMINO TRANSFERASE 20 U/L (15-37); BILIRUBIN,TOTAL 0.7 MG/DL (0.2-1.0); BLOOD UREA NITROGEN 60 mg/dL (7-18); CALCIUM 9.3 MG/DL (8.5-10.1); CARBON DIOXIDE 26 MMOL/L (21-32); CHLORIDE 108 MMOL/L (98-107); CREATININE 2.7 MG/DL (0.55-1.30); POTASSIUM 3.5 MMOL/L (3.5-5.1); SODIUM 147 MMOL/L (136-145)
[2017-10-22] MEDS ORDERED: Bisacodyl EC 5mg tab ORAL SCH (11:00)
--- NOTE | 2017-10-22 11:27 | Nephrology Progress Note ---
Assessment/Plan Problem List: (1) CKD (chronic kidney disease) stage 4, GFR 15-29 ml/min (2) Profound anemia (3) Upper GI bleed (4) UTI (urinary tract infection) Plan continue gi eval, lab a bit better, avoid fluid overload, epogen, lasix 40 iv on 10/20+10/21 , start hydralazine , add amlodipine for bp, colon prep ongoing, replace K+, should have av fistula in near future Subjective Constitutional: Reports: weakness HEENT: Reports: no symptoms Genitourinary: Reports: no symptoms Neurologic/Psychiatric: Reports: pre-existing deficit Objective Objective Last 24 Hour Vital Signs Date Time Temp Pulse Resp B/P (MAP) Pulse Ox O2 Delivery O2 Flow Rate FiO2 10/22/17 08:11 70 139/68 10/22/17 08:10 70 139/68 10/22/17 08:00 71 10/22/17 08:00 98.1 69 18 139/68 96 Room Air 98.1 10/22/17 07:55 Room Air 10/22/17 07:55 96 Room Air 10/22/17 06:49 135/78 10/22/17 04:00 97.2 66 20 133/66 94 Room Air 97.2 10/22/17 03:47 67 10/22/17 00:43 137/68 10/22/17 00:00 97.9 61 20 133/60 95 Room Air 97.9 10/21/17 23:40 59 10/21/17 21:28 66 145/72 10/21/17 20:00 98.4 66 20 145/72 96 Room Air 98.4 10/21/17 19:40 64 10/21/17 18:14 127/53 10/21/17 16:28 70 127/53 10/21/17 16:00 97.2 70 17 127/53 95 Room Air 97.2 10/21/17 16:00 71 10/21/17 13:31 159/73 10/21/17 12:50 98.0 59 16 161/73 100 Nasal Cannula 2.0 98.0 10/21/17 12:40 59 15 156/75 100 Nasal Cannula 2.0 10/21/17 12:35 60 13 159/73 100 Nasal Cannula 2.0 10/21/17 12:32 208.6 67 16 100 4/23/18 12:29 98.1 62 14 163/80 100 Nasal Cannula 2.0 98.1 10/21/17 12:00 68 Intake and Output 10/21/17 10/22/17 19:00 07:00 Intake Total 200 ml Output Total 0 ml Balance 200 ml IV Total 200 ml Estimated Blood Loss 0 ml # Voids 3 24 # Bowel Movements 1 1 Laboratory Tests 10/22/17 07:20: White Blood Count 6.4, Red Blood Count 3.02L, Hemoglobin 9.6L, Hematocrit 28.8L , Mean Corpuscular Volume 95, Mean Corpuscular Hemoglobin 31.9H, Mean Corpuscular Hemoglobin Concent 33.5, Red Cell Distribution Width 13.8, Platelet Count 222, Mean Platelet Volume 7.4, Neutrophils (%) (Auto) 76.6H, Lymphocytes ( %) (Auto) 12.7L, Monocytes (%) (Auto) 6.9, Eosinophils (%) (Auto) 3.1H, Basophils (%) (Auto) 0.6, Sodium Level 147H, Potassium Level 3.5, Chloride Level 108H, Carbon Dioxide Level 26, Anion Gap 13, Blood Urea Nitrogen 60H, Creatinine 2.7H, Estimat Glomerular Filtration Rate 17.7, Glucose Level 182H, Calcium Level 9.3, Magnesium Level 2.0, Total Bilirubin 0.7, Aspartate Amino Transf (AST/SGOT) 20, Alanine Aminotransferase (ALT/SGPT) 28, Alkaline Phosphatase 87, Pro-B-Type Natriuretic Peptide 84280T, Total Protein 7.8, Albumin 3.0L, Globulin 4.8, Albumin/Globulin Ratio 0.6L Height (Feet): 5 Height (Inches): 4.00 Weight (Pounds): 161 General Appearance: alert EENT: other - periorbital edema Neck: normal alignment Cardiovascular: normal rate Respiratory/Chest: lungs clear Abdomen: non tender, soft Extremities: trace edema Neurologic: motor weakness WEI RAO Oct 22, 2017 11:27
--- NOTE | 2017-10-22 18:47 | General Progress Note ---
Assessment/Plan Assessment/Plan Assessment: - GI Bleed - negative EGD - Anemia - NIDDM - CRF - Recent h/o CVA - on ASA and Eliquis Recommendations: - clear liquids - monitor CBC - Eliquis and Aspirin on hold - Colonoscopy in am Subjective Allergies: Coded Allergies: No Known Allergies (Unverified , 10/17/17) Subjective Feels OK no new symptoms H&H noted advised pt need to proceed with colonoscopy Objective Last 24 Hour Vital Signs Date Time Temp Pulse Resp B/P (MAP) Pulse Ox O2 Delivery O2 Flow Rate FiO2 10/22/17 17:27 134/76 10/22/17 16:00 65 10/22/17 16:00 97.9 64 18 134/76 99 Room Air 97.9 10/22/17 12:00 98.1 60 18 141/78 95 Room Air 98.1 10/22/17 12:00 62 10/22/17 11:55 141/78 10/22/17 08:11 70 139/68 10/22/17 08:10 70 139/68 10/22/17 08:00 71 10/22/17 08:00 98.1 69 18 139/68 96 Room Air 98.1 10/22/17 07:55 Room Air 10/22/17 07:55 96 Room Air 10/22/17 06:49 135/78 10/22/17 04:00 97.2 66 20 133/66 94 Room Air 97.2 10/22/17 03:47 67 10/22/17 00:43 137/68 10/22/17 00:00 97.9 61 20 133/60 95 Room Air 97.9 10/21/17 23:40 59 10/21/17 21:28 66 145/72 10/21/17 20:00 98.4 66 20 145/72 96 Room Air 98.4 10/21/17 19:40 64 Intake and Output 10/21/17 10/22/17 19:00 07:00 Intake Total 200 ml Output Total 0 ml Balance 200 ml IV Total 200 ml Estimated Blood Loss 0 ml # Voids 3 24 # Bowel Movements 1 1 Laboratory Tests 10/22/17 07:20: White Blood Count 6.4, Red Blood Count 3.02L, Hemoglobin 9.6L, Hematocrit 28.8L , Mean Corpuscular Volume 95, Mean Corpuscular Hemoglobin 31.9H, Mean Corpuscular Hemoglobin Concent 33.5, Red Cell Distribution Width 13.8, Platelet Count 222, Mean Platelet Volume 7.4, Neutrophils (%) (Auto) 76.6H, Lymphocytes ( %) (Auto) 12.7L, Monocytes (%) (Auto) 6.9, Eosinophils (%) (Auto) 3.1H, Basophils (%) (Auto) 0.6, Sodium Level 147H, Potassium Level 3.5, Chloride Level 108H, Carbon Dioxide Level 26, Anion Gap 13, Blood Urea Nitrogen 60H, Creatinine 2.7H, Estimat Glomerular Filtration Rate 17.7, Glucose Level 182H, Calcium Level 9.3, Magnesium Level 2.0, Total Bilirubin 0.7, Aspartate Amino Transf (AST/SGOT) 20, Alanine Aminotransferase (ALT/SGPT) 28, Alkaline Phosphatase 87, Pro-B-Type Natriuretic Peptide 10923P, Total Protein 7.8, Albumin 3.0L, Globulin 4.8, Albumin/Globulin Ratio 0.6L Height (Feet): 5 Height (Inches): 4.00 Weight (Pounds): 161 Objective WDWN NCAT supple CTA RRR abd soft ND NT trace edema non focal ATTILA BILL Oct 22, 2017 18:47
[2017-10-22] MEDS: Latanoprost 0.005% Opth 2.5ml Soln BOTH EYES SCH (21:59)
[2017-10-22] MEDS: Zolpidem 5mg tab ORAL PRN (22:00)
[2017-10-23] VITALS (10 sets, daily range): BP systolic 133–156; BP diastolic 54–75
[2017-10-23] MEDS: HydrALAZINE 50mg tab ORAL SCH ×4 (00:07→17:30)
--- NOTE | 2017-10-23 01:30 | Progress Note ---
DATE: 10/22/2017 CARDIOLOGY PROGRESS NOTE SUBJECTIVE: The patient's condition remains stable. No new signs of bleeding noted. Endoscopy, upper endoscopy yesterday revealed no source of bleeding. OBJECTIVE: VITAL SIGNS: Blood pressure 134/76, pulse 64, respiratory rate 18, and she is afebrile. LUNGS: Clear breath sounds. HEART: Regular rhythm and rate. Normal S1 and S2. ABDOMEN: Soft. EXTREMITIES: With trace edema. IMPRESSION: 1. Severe anemia. 2. Gastrointestinal bleeding. 3. Acute myocardial infarction. 4. Acute on chronic diastolic and systolic congestive heart failure. 5. Cerebrovascular accident. 6. Type 2 diabetes mellitus. 7. Hypertensive heart disease. PLAN: Proceed with diagnostic colonoscopy, minimally increased perioperative cardiovascular risk. At this time, hold anti-platelet and anticoagulant therapy pending results of colonoscopy. Further recommendations will follow. Toni Ariza M.D. DR: LUIS ALFREDO JOB#: [id number] CC:
[2017-10-23] MEDS: Cephalexin 250mg Cap ORAL SCH ×3 (06:18→22:19)
[2017-10-23] MEDS ORDERED: fentaNYL 100 mcg/2 mL IV PRN (06:45)
[2017-10-23] MEDS ORDERED: DiphenhydrAMINE 50mg/ml Inj IVP PRN (06:45)
[2017-10-23] MEDS ORDERED: Atropine Inj 1mg/10ml Syr IV PRN (06:45)
[2017-10-23] MEDS ORDERED: Midazolam 2mg/2ml Inj IVP PRN (06:45)
--- NOTE | 2017-10-23 06:48 | Anethesia Preoperative Eval ---
Anesthesia Pre-op PMH/ROS General Date of Evaluation: Oct 23, 2017 Time of Evaluation: 06:45 Anesthesiologist: zacarias ASA Score: ASA 3 Mallampati Score Class I : Soft palate, uvula, fauces, pillars visible Class II: Soft palate, uvula, fauces visible Class III: Soft palate, base of uvula visible Class IV: Only hard plate visible Mallampati Classification: Class II Surgeon: ralf Diagnosis: severe anemia Surgical Procedure: colonoscopy Anesthesia History: none Social History: smoking - nonsmoker Family History: no anesthesia problems Allergies: Coded Allergies: No Known Allergies (Unverified , 10/17/17) Medications: see eMAR Past Medical History Cardiovascular: Reports: HTN, PA Gastrointestinal/Genitourinary: Reports: other - uti, renal failure, ugib, Neurologic/Psychiatric: Reports: CVA Endocrine: Reports: DM Hematology/Immune: Reports: anemia Anesthesia Pre-op Phys. Exam Physician Exam Last Vital Signs Date Time Temp Pulse Resp B/P (MAP) Pulse Ox O2 Delivery O2 Flow Rate FiO2 10/23/17 06:18 148/62 10/23/17 04:00 98.3 72 18 98 Room Air 98.3 10/22/17 19:11 21 10/21/17 12:50 2.0 Constitutional: NAD Neurologic: CN 2-12 intact Respiratory: CTA Gastrointestinal: S/NT/ND Airway Exam Mallampati Score: Class II MO: limited Neck: short TMD: 2fb ROM: limited Teeth: intact Anesthesia Pre-op A/P Labs Hematology Test 10/22/17 07:20 White Blood Count 6.4 K/UL (4.8-10.8) Red Blood Count 3.02 M/UL (4.20-5.40) L Hemoglobin 9.6 G/DL (12.0-16.0) L Hematocrit 28.8 % (37.0-47.0) L Mean Corpuscular Volume 95 FL (80-99) Mean Corpuscular Hemoglobin 31.9 PG (27.0-31.0) H Mean Corpuscular Hemoglobin Concent 33.5 G/DL (32.0-36.0) Red Cell Distribution Width 13.8 % (11.6-14.8) Platelet Count 222 K/UL (150-450) Mean Platelet Volume 7.4 FL (6.5-10.1) Neutrophils (%) (Auto) 76.6 % (45.0-75.0) H Lymphocytes (%) (Auto) 12.7 % (20.0-45.0) L Monocytes (%) (Auto) 6.9 % (1.0-10.0) Eosinophils (%) (Auto) 3.1 % (0.0-3.0) H Basophils (%) (Auto) 0.6 % (0.0-2.0) Chemistry Test 10/22/17 07:20 Sodium Level 147 MMOL/L (136-145) H Potassium Level 3.5 MMOL/L (3.5-5.1) Chloride Level 108 MMOL/L (98-107) H Carbon Dioxide Level 26 MMOL/L (21-32) Anion Gap 13 mmol/L (5-15) Blood Urea Nitrogen 60 mg/dL (7-18) H Creatinine 2.7 MG/DL (0.55-1.30) H Estimat Glomerular Filtration Rate 17.7 mL/min (>60) Glucose Level 182 MG/DL (74-106) H Calcium Level 9.3 MG/DL (8.5-10.1) Magnesium Level 2.0 MG/DL (1.8-2.4) Total Bilirubin 0.7 MG/DL (0.2-1.0) Aspartate Amino Transf (AST/SGOT) 20 U/L (15-37) Alanine Aminotransferase (ALT/SGPT) 28 U/L (12-78) Alkaline Phosphatase 87 U/L (46-116) Pro-B-Type Natriuretic Peptide 43860 pg/mL (0-125) H Total Protein 7.8 G/DL (6.4-8.2) Albumin 3.0 G/DL (3.4-5.0) L Globulin 4.8 g/dL Albumin/Globulin Ratio 0.6 (1.0-2.7) L Studies Pre-op Studies: EKG - nsr, nstwa Risk Assessment & Plan Assessment: asa3 Plan: mac Status Change Before Surgery: No Pre-Antibiotics Drug: JAYNE Menjivar Oct 23, 2017 06:48
[2017-10-23] MEDS: NovoLOG Insulin Flexpen SUBQ SCH ×5 (06:55→20:45)
--- NOTE | 2017-10-23 07:20 | General Progress Note ---
Assessment/Plan Assessment/Plan 1. Acute gastrointestinal bleeding. 2. Acute myocardial infarction. 3. Severe anemia, status post transfusion. 4. Recovered shock due to acute blood loss. 5. Hypertensive heart disease with increasing blood pressure trend. 6. History of cerebrovascular accident with left-sided weakness. 7. Type 2 diabetes mellitus. 8. Acute on chronic renal failure, improved. 9. UTI Date seen: 10/22/17 EGD neg agreed to colonoscopy 10/23 no ACs Keflex for UTI CBC stable Subjective Constitutional: Reports: weakness Allergies: Coded Allergies: No Known Allergies (Unverified , 10/17/17) Objective Last 24 Hour Vital Signs Date Time Temp Pulse Resp B/P (MAP) Pulse Ox O2 Delivery O2 Flow Rate FiO2 10/23/17 06:18 148/62 10/23/17 04:00 98.3 72 18 148/62 98 Room Air 98.3 10/23/17 04:00 71 10/23/17 00:07 140/70 10/23/17 00:00 61 10/22/17 23:57 98.0 68 17 140/70 98 Room Air 98.0 10/22/17 22:00 65 148/78 10/22/17 20:00 62 10/22/17 20:00 97.0 65 18 148/78 100 Room Air 97.0 10/22/17 19:11 Room Air 21 10/22/17 19:11 95 Room Air 21 10/22/17 17:27 134/76 10/22/17 16:00 65 10/22/17 16:00 97.9 64 18 134/76 99 Room Air 97.9 10/22/17 12:00 98.1 60 18 141/78 95 Room Air 98.1 10/22/17 12:00 62 10/22/17 11:55 141/78 10/22/17 08:11 70 139/68 10/22/17 08:10 70 139/68 10/22/17 08:00 71 10/22/17 08:00 98.1 69 18 139/68 96 Room Air 98.1 10/22/17 07:55 Room Air 10/22/17 07:55 96 Room Air Intake and Output 10/22/17 10/23/17 18:59 06:59 Intake Total 480 ml Balance 480 ml Intake Oral 480 ml # Voids 3 # Bowel Movements 2 4 Laboratory Tests 10/22/17 07:20: White Blood Count 6.4, Red Blood Count 3.02L, Hemoglobin 9.6L, Hematocrit 28.8L , Mean Corpuscular Volume 95, Mean Corpuscular Hemoglobin 31.9H, Mean Corpuscular Hemoglobin Concent 33.5, Red Cell Distribution Width 13.8, Platelet Count 222, Mean Platelet Volume 7.4, Neutrophils (%) (Auto) 76.6H, Lymphocytes ( %) (Auto) 12.7L, Monocytes (%) (Auto) 6.9, Eosinophils (%) (Auto) 3.1H, Basophils (%) (Auto) 0.6, Sodium Level 147H, Potassium Level 3.5, Chloride Level 108H, Carbon Dioxide Level 26, Anion Gap 13, Blood Urea Nitrogen 60H, Creatinine 2.7H, Estimat Glomerular Filtration Rate 17.7, Glucose Level 182H, Calcium Level 9.3, Magnesium Level 2.0, Total Bilirubin 0.7, Aspartate Amino Transf (AST/SGOT) 20, Alanine Aminotransferase (ALT/SGPT) 28, Alkaline Phosphatase 87, Pro-B-Type Natriuretic Peptide 72778I, Total Protein 7.8, Albumin 3.0L, Globulin 4.8, Albumin/Globulin Ratio 0.6L Height (Feet): 5 Height (Inches): 4.00 Weight (Pounds): 161 General Appearance: no apparent distress Cardiovascular: normal rate Respiratory/Chest: lungs clear Abdomen: non tender Eduardo Russ MD Oct 23, 2017 07:20
[2017-10-23] MEDS ORDERED: Propofol 200mg/20ml IV ONE (07:30)
[2017-10-23] MEDS ORDERED: Lidocaine 1% MPF 10mg/ml 5ml ONE (07:30)
[2017-10-23 07:42] LABS: BASOPHILS % (AUTO) 0.8 % (0.0-2.0); EOSINOPHILS % (AUTO) 3.9 % (0.0-3.0); HEMATOCRIT 27.5 % (37.0-47.0); HEMOGLOBIN 9.2 G/DL (12.0-16.0); LYMPHOCYTES % (AUTO) 16.6 % (20.0-45.0); MEAN CORPUSCULAR VOLUME 95 FL (80-99); MONOCYTES % (AUTO) 7.3 % (1.0-10.0); NEUTROPHILS % (AUTO) 71.4 % (45.0-75.0); PLATELET COUNT 210 K/UL (150-450); RED CELL DISTRIBUTION WIDTH 13.5 % (11.6-14.8); WHITE BLOOD COUNT 6.7 K/UL (4.8-10.8)
[2017-10-23 07:52] LABS: ANION GAP 13 mmol/L (5-15); CALCIUM 8.9 MG/DL (8.5-10.1); CARBON DIOXIDE 25 MMOL/L (21-32); CHLORIDE 108 MMOL/L (98-107); CREATININE 2.4 MG/DL (0.55-1.30); POTASSIUM 3.9 MMOL/L (3.5-5.1); SODIUM 146 MMOL/L (136-145)
[2017-10-23 08:00] LABS: BLOOD UREA NITROGEN 51 mg/dL (7-18)
[2017-10-23] MEDS ORDERED: NS 500ML IV ONE (08:05)
--- NOTE | 2017-10-23 08:10 | Pre-Procedure Note/Attestation ---
Pre-Procedure Note/Attestation Complete Prior to Procedure Planned Procedure: not applicable Procedure Narrative: colon Indications for Procedure Pre-Operative Diagnosis: GIB Attestation I attest that I discussed the nature of the procedure; its benefits; risks and complications; and alternatives (and the risks and benefits of such alternatives ), prior to the procedure, with the patient (or the patient's legal traffic workforce representative). I attest that, if there was a reasonable possibility of needing a blood transfusion, the patient (or the patient's legal traffic workforce representative) was given the [facility] standardized written summary, pursuant to the [place] Blood Safety Act ([place] Health and Safety Code # 1645, as amended). I attest that I re-evaluated the patient just prior to the surgery and that there has been no change in the patient's H&P, except as documented below: ATTILA BILL Oct 23, 2017 08:10
--- NOTE | 2017-10-23 09:19 | General Progress Note ---
Assessment/Plan Assessment/Plan Assessment: - GI Bleed - negative EGD - Anemia - NIDDM - CRF - Recent h/o CVA - on ASA and Eliquis Recommendations: - NPO - monitor CBC - Eliquis and Aspirin on hold - Colonoscopy today POST PROCEDURE ADDENDUM COLONOSCOPY: Multiple polyps removed No ulcers or cancer Recommendations: Restart Aspirin today Restart systemic anticoagulation tomorrow if future progression of anemia, would check capsule endoscopy Subjective Allergies: Coded Allergies: No Known Allergies (Unverified , 10/17/17) Subjective Feels OK no new symptoms NPO for colonoscopy Objective Last 24 Hour Vital Signs Date Time Temp Pulse Resp B/P (MAP) Pulse Ox O2 Delivery O2 Flow Rate FiO2 10/23/17 06:18 148/62 10/23/17 04:00 98.3 72 18 148/62 98 Room Air 98.3 10/23/17 04:00 71 10/23/17 00:07 140/70 10/23/17 00:00 61 10/22/17 23:57 98.0 68 17 140/70 98 Room Air 98.0 10/22/17 22:00 65 148/78 10/22/17 20:00 62 10/22/17 20:00 97.0 65 18 148/78 100 Room Air 97.0 10/22/17 19:11 Room Air 21 10/22/17 19:11 95 Room Air 21 10/22/17 17:27 134/76 10/22/17 16:00 65 10/22/17 16:00 97.9 64 18 134/76 99 Room Air 97.9 10/22/17 12:00 98.1 60 18 141/78 95 Room Air 98.1 10/22/17 12:00 62 10/22/17 11:55 141/78 Intake and Output 10/22/17 10/23/17 19:00 07:00 Intake Total 480 ml Balance 480 ml Intake Oral 480 ml # Voids 3 # Bowel Movements 2 4 Laboratory Tests 10/23/17 06:50: White Blood Count 6.7, Red Blood Count 2.90L, Hemoglobin 9.2L, Hematocrit 27.5L , Mean Corpuscular Volume 95, Mean Corpuscular Hemoglobin 31.8H, Mean Corpuscular Hemoglobin Concent 33.5, Red Cell Distribution Width 13.5, Platelet Count 210, Mean Platelet Volume 7.4, Neutrophils (%) (Auto) 71.4, Lymphocytes (% ) (Auto) 16.6L, Monocytes (%) (Auto) 7.3, Eosinophils (%) (Auto) 3.9H, Basophils (%) (Auto) 0.8, Sodium Level 146H, Potassium Level 3.9, Chloride Level 108H, Carbon Dioxide Level 25, Anion Gap 13, Blood Urea Nitrogen 51H, Creatinine 2.4H, Estimat Glomerular Filtration Rate 20.3, Glucose Level 143H, Calcium Level 8.9 Height (Feet): 5 Height (Inches): 4.00 Weight (Pounds): 165 Objective WDWN NCAT supple CTA RRR abd soft ND NT trace edema non focal ATTILA BILL Oct 23, 2017 09:19
[2017-10-23] MEDS: Aspirin Baby 81mg ORAL SCH (10:25)
[2017-10-23] MEDS: Pantoprazole Inj IVP SCH ×2 (10:25→20:35)
[2017-10-23] MEDS: Metoprolol 25mg tab ORAL SCH ×2 (10:41→20:36)
--- NOTE | 2017-10-23 17:13 | General Progress Note ---
Assessment/Plan Assessment/Plan 1. Acute gastrointestinal bleeding. 2. Acute myocardial infarction. 3. Severe anemia, status post transfusion. 4. Recovered shock due to acute blood loss. 5. Hypertensive heart disease with increasing blood pressure trend. 6. History of cerebrovascular accident with left-sided weakness. 7. Type 2 diabetes mellitus. 8. Acute on chronic renal failure, improved. 9. UTI EGD neg colonoscopy with multiple polyps no ACs Keflex for UTI CBC stable dc 1-2 Subjective Gastrointestinal/Abdominal: Reports: abdominal pain Allergies: Coded Allergies: No Known Allergies (Unverified , 10/17/17) Objective Last 24 Hour Vital Signs Date Time Temp Pulse Resp B/P (MAP) Pulse Ox O2 Delivery O2 Flow Rate FiO2 10/23/17 12:15 156/75 10/23/17 12:00 74 10/23/17 12:00 97.7 63 18 156/75 99 Room Air 97.7 10/23/17 10:41 65 153/68 10/23/17 10:26 65 153/66 10/23/17 09:55 97.5 65 16 145/72 99 Room Air 97.5 10/23/17 09:40 72 20 139/68 99 Room Air 10/23/17 09:30 69 17 136/67 99 Room Air 10/23/17 09:20 67 20 133/63 98 Room Air 10/23/17 09:14 98.0 72 18 137/54 100 Room Air 98.0 10/23/17 08:00 98.0 72 18 138/60 98 Room Air 98.0 10/23/17 08:00 73 10/23/17 07:32 98 Room Air 21 10/23/17 06:18 148/62 10/23/17 04:00 98.3 72 18 148/62 98 Room Air 98.3 10/23/17 04:00 71 10/23/17 00:07 140/70 10/23/17 00:00 61 10/22/17 23:57 98.0 68 17 140/70 98 Room Air 98.0 10/22/17 22:00 65 148/78 10/22/17 20:00 62 10/22/17 20:00 97.0 65 18 148/78 100 Room Air 97.0 10/22/17 19:11 Room Air 21 10/22/17 19:11 95 Room Air 21 10/22/17 17:27 134/76 Intake and Output 10/22/17 10/23/17 19:00 07:00 Intake Total 480 ml Balance 480 ml Intake Oral 480 ml # Voids 3 # Bowel Movements 2 4 Laboratory Tests 10/23/17 06:50: White Blood Count 6.7, Red Blood Count 2.90L, Hemoglobin 9.2L, Hematocrit 27.5L , Mean Corpuscular Volume 95, Mean Corpuscular Hemoglobin 31.8H, Mean Corpuscular Hemoglobin Concent 33.5, Red Cell Distribution Width 13.5, Platelet Count 210, Mean Platelet Volume 7.4, Neutrophils (%) (Auto) 71.4, Lymphocytes (% ) (Auto) 16.6L, Monocytes (%) (Auto) 7.3, Eosinophils (%) (Auto) 3.9H, Basophils (%) (Auto) 0.8, Sodium Level 146H, Potassium Level 3.9, Chloride Level 108H, Carbon Dioxide Level 25, Anion Gap 13, Blood Urea Nitrogen 51H, Creatinine 2.4H, Estimat Glomerular Filtration Rate 20.3, Glucose Level 143H, Calcium Level 8.9 Height (Feet): 5 Height (Inches): 4.00 Weight (Pounds): 165 General Appearance: no apparent distress Neck: supple Cardiovascular: normal rate Respiratory/Chest: lungs clear Abdomen: non tender Eduardo Russ MD Oct 23, 2017 17:13
--- NOTE | 2017-10-23 19:15 | Operative Note - Dictated ---
DATE OF OPERATION: 10/23/2017 GASTROENTEROLOGY PROCEDURE REPORT PROCEDURE: Colonoscopy with biopsy, endoscopic mucosal resection, hot snare polypectomy, and cold snare polypectomy. SURGEON: Veronika Frias M.D. ANESTHESIA: Please see the separate anesthesiologist notes for details. PRE-ENDOSCOPIC DIAGNOSIS: Anemia. POST-ENDOSCOPIC DIAGNOSES: 1. Diminutive cecal polyp, status post cold snare polypectomy, this measured approximately 3 to 4 mm. 2. Distal ascending colon polyp, which was semi-pedunculated, measuring approximately 7 mm, status post injection with Eleview mucosal contrast agent, followed by hot snare polypectomy, followed by Endoclip placement. 3. Distal ascending colon polyp, status post biopsy removal, diminutive. 4. Distal ascending colon polyp at 60 cm, status post hot snare polypectomy, followed by Endoclip placement. 5. Distal descending colon polyp x2, status post biopsy removal. 6. Sigmoid polyp at 40 cm, which was semi-pedunculated, status post hot snare polypectomy, followed by Endoclip placement. 7. No evidence of cancers or ulcers or other bleeding lesions or significant diverticulosis. DESCRIPTION OF PROCEDURE: The procedure, its risks, indications, alternatives, and possible complications including, but not limited to bleeding, infection, perforation, , and anesthesia complications were explained to the patient and informed consent was obtained. The colonoscope was introduced into the rectum and advanced to the terminal ileum. There was no evidence of blood throughout the GI tract or the terminal ileum. The colonoscope was then gradually withdrawn and the mucosa was examined carefully. Examination of the colonic mucosa revealed the above findings and treatments. The retroflexed view of the rectum was unremarkable. The colonoscope was removed, and the patient was sent to recovery in good condition. COMPLICATIONS: None. RECOMMENDATIONS: 1. Followup biopsy results. 2. Hold anticoagulation for another day. 3. Resume oral diet. 4. Consider capsule endoscopy to evaluate the small bowel. Veronika Frias M.D. DR: MELVI JOB#: [id number] CC:
--- NOTE | 2017-10-23 19:56 | Endoscopy Procedure Note ---
Endoscopy Procedure Note General Indication for Procedure: anemua Procedures Performed: colonoscopy Operative Findings/Diagnosis: polyps - removed Specimen: yes Pt Tolerated Procedure Well: Yes Estimated Blood Loss: none Anesthesia Anesthesiologist: see report Anesthesia: MAC Medications Medication Given: see anesthesia record Inserted Devices Implant(s) used?: No GI Core Measures 50 yrs or older w/o bx or poly: No 10yrs. F/U not recommended: No If not recommended, why?: Above average risk 10 yrs. F/U needed: No 18 years or older w/prev. colo: No <3yrs. since last colonoscopy: No Med reason:<3 yrs.: System Reason:<3 yrs.: Last colonoscopy >= to 3yrs: Yes ATTILA BILL Oct 23, 2017 19:56
--- NOTE | 2017-10-23 19:57 | Brief Operative Note ---
Immediate Post Operative Note Operative Note Chief Complaint: anemia Pre-op Diagnosis: GIB Procedure: egd Post-op Diagnosis: Normal EGD. No lesion to explain GI Bleed Will proceed with colonoscopy on Sat am. Surgeon: ralf Anesthesiologist: see report Anesthesia: MAC Specimen: yes Complications: none Condition: stable Fluids: recorded Estimated Blood Loss: none Drains: none Implant(s) used?: No ATTILA BILL Oct 23, 2017 19:57
--- NOTE | 2017-10-23 20:00 | Brief Operative Note ---
Immediate Post Operative Note Operative Note Chief Complaint: anemia Pre-op Diagnosis: GIB Procedure: colon Post-op Diagnosis: COLONOSCOPY: Multiple polyps removed No ulcers or cancer Recommendations: Restart Aspirin today Restart systemic anticoagulation tomorrow if future progression of anemia, would check capsule endoscopy Surgeon: ralf Anesthesiologist: see report Anesthesia: MAC, moderate sedation Specimen: yes Complications: none Condition: stable Fluids: recorded Estimated Blood Loss: none Drains: none Implant(s) used?: No ATTILA BILL Oct 23, 2017 19:59
[2017-10-23] MEDS: Latanoprost 0.005% Opth 2.5ml Soln BOTH EYES SCH (20:57)
--- NOTE | 2017-10-23 23:31 | Immediate Post-Op Evaluation ---
Immediate Post-Op Evalulation Immediate Post-Op Evalulation Procedure: EGD Date of Evaluation: Oct 23, 2017 Time of Evaluation: 09:26 IV Fluids: 225ml 0.9ns Blood Products: none Estimated Blood Loss: negligible Blood Pressure Systolic: 133 Blood Pressure Diastolic: 64 Pulse Rate: 72 Respiratory Rate: 18 O2 Sat by Pulse Oximetry: 100 Temperature (Fahrenheit): 98.0 Pain Score (1-10): 0 Nausea: No Vomiting: No Complications none Patient Status: awake, reacts, patent Hydration Status: adequate Drug: JAYNE Menjivar Oct 23, 2017 23:31
--- NOTE | 2017-10-23 23:34 | 48 Hour Post Anesthesia Eval ---
Post Anesthesia Evaluation Procedure: EGD Date of Evaluation: Oct 23, 2017 Time of Evaluation: 09:28 Blood Pressure Systolic: 133 0: 63 Pulse Rate: 65 Respiratory Rate: 18 Temperature (Fahrenheit): 98.0 O2 Sat by Pulse Oximetry: 100 Airway: patent Nausea: No Vomiting: No Pain Intensity: 0 Hydration Status: adequate Cardiopulmonary Status: stable Mental Status/LOC: patient returned to baseline Post-Anesthesia Complications: none Follow-up care needed: N/A JAYNE RED Oct 23, 2017 23:34
[2017-10-24] VITALS: BP 148/77
[2017-10-24] MEDS: HydrALAZINE 50mg tab ORAL SCH ×4 (00:59→16:59)
[2017-10-24] MEDS: LORazepam 0.5mg tab ORAL PRN ×2 (02:45→23:14)
[2017-10-24 04:00] VITALS: BP 164/76
--- NOTE | 2017-10-24 04:15 | Progress Note ---
DATE: 10/23/2017 CARDIOLOGY PROGRESS NOTE SUBJECTIVE: The patient is status post colonoscopy today. Multiple polyps were removed, otherwise no active bleeding seen. No chest pain. Monitored rhythm, sinus. OBJECTIVE: VITAL SIGNS: Blood pressure 148/77, pulse 66, respiratory rate 21, afebrile. LUNGS: Bilateral breath sounds. No wheezing. HEART: Regular rhythm and rate. Normal S1, S2 with a fourth heart sound. ABDOMEN: Soft. No edema. LABORATORY DATA: White count 6.7, hemoglobin 9.2. Sodium 146, potassium 3.9, BUN 51, creatinine 2.4. IMPRESSION: 1. Acute myocardial infarction precipitated by severe anemia. 2. Severe anemia, possibly due to polyps, cannot exclude small bowel abnormality. 3. History of CVA. 4. Hypertensive heart disease. 5. Acute on chronic systolic and diastolic congestive heart failure. 6. Dehydration. 7. Hypernatremia. 8. Acute on chronic renal failure, improving. PLAN: 1. Free water replacement. 2. Restart anticoagulation tomorrow. 3. Restart anti-platelet therapy today. 4. Hold diuretics until metabolic abnormalities are corrected. 5. Monitor volume status and cardiorenal parameters. 6. Continue beta-blockade. Toni Ariza M.D. DR: Alexys JOB#: [id number] CC:
[2017-10-24] MEDS: NovoLOG Insulin Flexpen SUBQ SCH ×4 (06:30→21:15)
[2017-10-24] MEDS: Cephalexin 250mg Cap ORAL SCH ×3 (07:00→21:17)
[2017-10-24 07:52] LABS: BASOPHILS % (AUTO) 0.7 % (0.0-2.0); EOSINOPHILS % (AUTO) 2.9 % (0.0-3.0); HEMATOCRIT 28.7 % (37.0-47.0); HEMOGLOBIN 9.6 G/DL (12.0-16.0); LYMPHOCYTES % (AUTO) 15.3 % (20.0-45.0); MEAN CORPUSCULAR VOLUME 96 FL (80-99); MONOCYTES % (AUTO) 7.5 % (1.0-10.0); NEUTROPHILS % (AUTO) 73.6 % (45.0-75.0); PLATELET COUNT 203 K/UL (150-450); RED CELL DISTRIBUTION WIDTH 13.5 % (11.6-14.8)
[2017-10-24 08:00] VITALS: BP 154/82
[2017-10-24 08:06] LABS: ANION GAP 10 mmol/L (5-15); BLOOD UREA NITROGEN 49 mg/dL (7-18); CARBON DIOXIDE 26 MMOL/L (21-32); CHLORIDE 106 MMOL/L (98-107); CREATININE 2.6 MG/DL (0.55-1.30); SODIUM 142 MMOL/L (136-145)
[2017-10-24] MEDS: Pantoprazole Inj IVP SCH ×2 (08:24→21:06)
[2017-10-24] MEDS: Aspirin Baby 81mg ORAL SCH (08:25)
[2017-10-24] MEDS: Metoprolol 25mg tab ORAL SCH ×2 (08:25→21:06)
--- NOTE | 2017-10-24 08:45 | Progress Note ---
DATE: 10/23/2017 NOTE: POOR AUDIO SUBJECTIVE: The patient is lying in bed, alert. OBJECTIVE: VITAL SIGNS: Temperature , pulse 64, respirations 20, and blood pressure 144/60. HEENT: shows periorbital edema. LUNGS: Clear. HEART: Regular rhythm. ABDOMEN: Soft without organomegaly. EXTREMITIES: Showed trace edema. NEUROLOGIC: She has dysarthria, facial asymmetry, and generalized weakness. LABORATORY DATA: Pertinent labs, sodium 146, potassium 3.9, chloride 108, CO2 of 25, BUN 51, and creatinine 2.4. IMPRESSION: 1. gastrointestinal bleed. Follow up by GI. 2. Chronic kidney disease, stage 5. 3. Acute kidney injury, likely due to GI bleed. 4. High BNP, chronic diastolic congestive heart failure. 5. History of severe hypertension. 6. History of diabetes. PLAN: We will continue diuretics at a low dose, blood pressure regimen. She likely will need a dialysis fistula in the future. Fabian Gómez M.D. DR: JACKSON JOB#: [id number] CC:
[2017-10-24] MEDS ORDERED: Furosemide 40mg tab ORAL SCH (09:00)
[2017-10-24 12:00] VITALS: BP 156/63
--- NOTE | 2017-10-24 13:12 | General Progress Note ---
Assessment/Plan Problem List: (1) CKD (chronic kidney disease) stage 4, GFR 15-29 ml/min ICD Codes: N18.4 - Chronic kidney disease, stage 4 (severe) SNOMED: 961351540 (2) Profound anemia ICD Codes: D64.9 - Anemia, unspecified SNOMED: 348963868 Qualifiers: Qualified Codes: D50.8 - Other iron deficiency anemias (3) Upper GI bleed ICD Codes: K92.2 - Gastrointestinal hemorrhage, unspecified SNOMED: 94690140 (4) UTI (urinary tract infection) ICD Codes: N39.0 - Urinary tract infection, site not specified SNOMED: 44886852 Qualifiers: Qualified Codes: N30.00 - Acute cystitis without hematuria Assessment/Plan [id number] will need dialysis access in next 2-6 mon d/w son Subjective Constitutional: Reports: weakness HEENT: Reports: no symptoms Cardiovascular: Reports: no symptoms Respiratory: Reports: no symptoms Genitourinary: Reports: incontinence Neurologic/Psychiatric: Reports: pre-existing deficit Endocrine: Reports: no symptoms Allergies: Coded Allergies: No Known Allergies (Unverified , 10/17/17) Objective Last 24 Hour Vital Signs Date Time Temp Pulse Resp B/P (MAP) Pulse Ox O2 Delivery O2 Flow Rate FiO2 10/24/17 12:03 156/63 10/24/17 12:00 98.4 63 20 156/63 98 Room Air 98.4 10/24/17 12:00 58 10/24/17 08:25 69 154/82 10/24/17 08:24 69 154/82 10/24/17 08:00 97.5 69 18 154/82 95 Room Air 97.5 10/24/17 08:00 61 10/24/17 06:59 164/76 10/24/17 04:00 61 10/24/17 04:00 98.0 63 20 164/76 96 Room Air 98.0 10/24/17 00:59 148/77 10/24/17 00:00 97.0 66 21 148/77 94 Room Air 97.0 10/24/17 00:00 66 10/23/17 23:34 208.4 65 18 100 10/23/17 23:31 208.4 72 18 100 10/23/17 20:36 64 144/66 10/23/17 20:00 64 10/23/17 20:00 99.1 75 20 144/66 97 Room Air 99.1 10/23/17 17:30 151/75 10/23/17 16:00 98.1 61 20 151/75 99 Room Air 98.1 10/23/17 16:00 64 Intake and Output 10/23/17 10/24/17 19:00 07:00 Intake Total 240 ml Balance 240 ml Intake Oral 240 ml # Voids 4 2 Laboratory Tests 10/24/17 07:10: White Blood Count 7.0, Red Blood Count 3.00L, Hemoglobin 9.6L, Hematocrit 28.7L , Mean Corpuscular Volume 96, Mean Corpuscular Hemoglobin 31.9H, Mean Corpuscular Hemoglobin Concent 33.4, Red Cell Distribution Width 13.5, Platelet Count 203, Mean Platelet Volume 7.3, Neutrophils (%) (Auto) 73.6, Lymphocytes (% ) (Auto) 15.3L, Monocytes (%) (Auto) 7.5, Eosinophils (%) (Auto) 2.9, Basophils (%) (Auto) 0.7, Sodium Level 142, Potassium Level 4.0, Chloride Level 106, Carbon Dioxide Level 26, Anion Gap 10, Blood Urea Nitrogen 49H, Creatinine 2.6H , Estimat Glomerular Filtration Rate 18.6, Glucose Level 244#H, Calcium Level 9.0, Magnesium Level 2.2 Height (Feet): 5 Height (Inches): 4.00 Weight (Pounds): 167 General Appearance: no apparent distress, alert EENT: other - periorbital edema Neck: non-tender Cardiovascular: normal rate, regular rhythm Respiratory/Chest: lungs clear Abdomen: non tender, soft Edema: trace edema Neurologic: motor weakness WEI RAO Oct 24, 2017 13:12
[2017-10-24 16:25] VITALS: BP 148/68
--- NOTE | 2017-10-24 17:29 | General Progress Note ---
Assessment/Plan Assessment/Plan 1. Acute gastrointestinal bleeding. 2. Acute myocardial infarction. 3. Severe anemia, status post transfusion. 4. Recovered shock due to acute blood loss. 5. Hypertensive heart disease with increasing blood pressure trend. 6. History of cerebrovascular accident with left-sided weakness. 7. Type 2 diabetes mellitus. 8. Acute on chronic renal failure, improved. 9. UTI EGD neg colonoscopy with multiple polyps no ACs Keflex for UTI CBC, renal stable DC to SNF AM, not able to ambulate Subjective Constitutional: Reports: weakness Respiratory: Denies: shortness of breath Gastrointestinal/Abdominal: Denies: abdominal pain Allergies: Coded Allergies: No Known Allergies (Unverified , 10/17/17) Objective Last 24 Hour Vital Signs Date Time Temp Pulse Resp B/P (MAP) Pulse Ox O2 Delivery O2 Flow Rate FiO2 10/24/17 16:59 148/68 10/24/17 16:25 98.2 64 20 148/68 97 98.2 10/24/17 12:03 156/63 10/24/17 12:00 98.4 63 20 156/63 98 Room Air 98.4 10/24/17 12:00 58 10/24/17 08:25 69 154/82 10/24/17 08:24 69 154/82 10/24/17 08:00 97.5 69 18 154/82 95 Room Air 97.5 10/24/17 08:00 61 10/24/17 06:59 164/76 10/24/17 04:00 61 10/24/17 04:00 98.0 63 20 164/76 96 Room Air 98.0 10/24/17 00:59 148/77 10/24/17 00:00 97.0 66 21 148/77 94 Room Air 97.0 10/24/17 00:00 66 10/23/17 23:34 208.4 65 18 100 10/23/17 23:31 208.4 72 18 100 10/23/17 20:36 64 144/66 10/23/17 20:00 64 10/23/17 20:00 99.1 75 20 144/66 97 Room Air 99.1 10/23/17 17:30 151/75 Intake and Output 10/23/17 10/24/17 19:00 07:00 Intake Total 240 ml Balance 240 ml Intake Oral 240 ml # Voids 4 2 Laboratory Tests 10/24/17 07:10: White Blood Count 7.0, Red Blood Count 3.00L, Hemoglobin 9.6L, Hematocrit 28.7L , Mean Corpuscular Volume 96, Mean Corpuscular Hemoglobin 31.9H, Mean Corpuscular Hemoglobin Concent 33.4, Red Cell Distribution Width 13.5, Platelet Count 203, Mean Platelet Volume 7.3, Neutrophils (%) (Auto) 73.6, Lymphocytes (% ) (Auto) 15.3L, Monocytes (%) (Auto) 7.5, Eosinophils (%) (Auto) 2.9, Basophils (%) (Auto) 0.7, Sodium Level 142, Potassium Level 4.0, Chloride Level 106, Carbon Dioxide Level 26, Anion Gap 10, Blood Urea Nitrogen 49H, Creatinine 2.6H , Estimat Glomerular Filtration Rate 18.6, Glucose Level 244#H, Calcium Level 9.0, Magnesium Level 2.2 Height (Feet): 5 Height (Inches): 4.00 Weight (Pounds): 167 General Appearance: no apparent distress, alert Neck: supple Cardiovascular: normal rate Respiratory/Chest: lungs clear Abdomen: non tender Eduardo Russ MD Oct 24, 2017 17:29
[2017-10-24 20:00] VITALS: BP 146/63
[2017-10-24] MEDS: Latanoprost 0.005% Opth 2.5ml Soln BOTH EYES SCH (21:05)
[2017-10-24] MEDS: Zolpidem 5mg tab ORAL PRN (21:06)
--- NOTE | 2017-10-24 22:45 | General Progress Note ---
Assessment/Plan Assessment/Plan Assessment: - GI Bleed - resolved - negative EGD, polyps on colonoscopy - Anemia - NIDDM - CRF - Recent h/o CVA - on ASA and Eliquis Recommendations: - PO diet - monitor CBC - continue ASA - OK to restart Eliquis Subjective Allergies: Coded Allergies: No Known Allergies (Unverified , 10/17/17) Subjective Feels OK no new symptoms d/w patient re results Objective Last 24 Hour Vital Signs Date Time Temp Pulse Resp B/P (MAP) Pulse Ox O2 Delivery O2 Flow Rate FiO2 10/24/17 21:06 70 146/63 10/24/17 20:00 98.3 70 22 146/63 95 98.3 10/24/17 19:00 63 10/24/17 16:59 148/68 10/24/17 16:25 98.2 64 20 148/68 97 98.2 10/24/17 16:00 64 10/24/17 12:03 156/63 10/24/17 12:00 98.4 63 20 156/63 98 Room Air 98.4 10/24/17 12:00 58 10/24/17 08:25 69 154/82 10/24/17 08:24 69 154/82 10/24/17 08:00 97.5 69 18 154/82 95 Room Air 97.5 10/24/17 08:00 61 10/24/17 06:59 164/76 10/24/17 04:00 61 10/24/17 04:00 98.0 63 20 164/76 96 Room Air 98.0 10/24/17 00:59 148/77 10/24/17 00:00 97.0 66 21 148/77 94 Room Air 97.0 10/24/17 00:00 66 10/23/17 23:34 208.4 65 18 100 10/23/17 23:31 208.4 72 18 100 Intake and Output 10/23/17 10/24/17 19:00 07:00 Intake Total 240 ml Balance 240 ml Intake Oral 240 ml # Voids 4 2 Laboratory Tests 10/24/17 07:10: White Blood Count 7.0, Red Blood Count 3.00L, Hemoglobin 9.6L, Hematocrit 28.7L , Mean Corpuscular Volume 96, Mean Corpuscular Hemoglobin 31.9H, Mean Corpuscular Hemoglobin Concent 33.4, Red Cell Distribution Width 13.5, Platelet Count 203, Mean Platelet Volume 7.3, Neutrophils (%) (Auto) 73.6, Lymphocytes (% ) (Auto) 15.3L, Monocytes (%) (Auto) 7.5, Eosinophils (%) (Auto) 2.9, Basophils (%) (Auto) 0.7, Sodium Level 142, Potassium Level 4.0, Chloride Level 106, Carbon Dioxide Level 26, Anion Gap 10, Blood Urea Nitrogen 49H, Creatinine 2.6H , Estimat Glomerular Filtration Rate 18.6, Glucose Level 244#H, Calcium Level 9.0, Magnesium Level 2.2 Height (Feet): 5 Height (Inches): 4.00 Weight (Pounds): 167 Objective WDWN NCAT supple CTA RRR abd soft ND NT trace edema non focal ATTILA BILL Oct 24, 2017 22:45
[2017-10-24] MEDS: Eliquis 2.5mg tablet ORAL SCH (23:14)
[2017-10-25] VITALS: BP 149/70
[2017-10-25] MEDS: HydrALAZINE 50mg tab ORAL SCH ×5 (00:56→22:48)
[2017-10-25 04:00] VITALS: BP 147/68
[2017-10-25] MEDS: Cephalexin 250mg Cap ORAL SCH ×3 (06:07→21:42)
[2017-10-25] MEDS: NovoLOG Insulin Flexpen SUBQ SCH ×4 (06:11→21:45)
[2017-10-25 08:00] VITALS: BP 135/52
[2017-10-25] MEDS: Eliquis 2.5mg tablet ORAL SCH ×2 (09:11→17:17)
[2017-10-25] MEDS: Metoprolol 25mg tab ORAL SCH ×2 (09:11→21:42)
[2017-10-25] MEDS: Aspirin Baby 81mg ORAL SCH (09:11)
[2017-10-25 12:00] VITALS: BP 145/75
[2017-10-25] MEDS ORDERED: CEPHALEXIN250 MG ORAL (13:39)
[2017-10-25] MEDS ORDERED: APRESOLINE50 MG ORAL (13:39)
--- NOTE | 2017-10-25 13:42 | General Progress Note ---
Assessment/Plan Assessment/Plan 1. Acute gastrointestinal bleeding. 2. Acute myocardial infarction. 3. Severe anemia, status post transfusion. 4. Recovered shock due to acute blood loss. 5. Hypertensive heart disease with increasing blood pressure trend. 6. History of cerebrovascular accident with left-sided weakness. 7. Type 2 diabetes mellitus. 8. Acute on chronic renal failure, improved. 9. UTI EGD neg colonoscopy with multiple polyps no ACs Keflex for UTI CBC, renal stable DC to SNF Subjective Respiratory: Denies: shortness of breath Gastrointestinal/Abdominal: Denies: abdominal pain Allergies: Coded Allergies: No Known Allergies (Unverified , 10/17/17) Objective Last 24 Hour Vital Signs Date Time Temp Pulse Resp B/P (MAP) Pulse Ox O2 Delivery O2 Flow Rate FiO2 10/25/17 12:31 145/64 10/25/17 09:12 61 132/57 10/25/17 09:11 61 132/57 10/25/17 08:00 97.2 71 20 135/52 97 97.2 10/25/17 08:00 69 10/25/17 06:07 152/72 10/25/17 04:03 65 10/25/17 04:00 98.2 60 23 147/68 97 98.2 10/25/17 00:56 149/70 10/25/17 00:00 98.5 67 22 149/70 94 98.5 10/24/17 23:37 64 10/24/17 21:06 70 146/63 10/24/17 20:00 98.3 70 22 146/63 95 98.3 10/24/17 19:00 63 10/24/17 16:59 148/68 10/24/17 16:25 98.2 64 20 148/68 97 98.2 10/24/17 16:00 64 Intake and Output 10/24/17 10/25/17 19:00 07:00 Intake Total 500 ml 240 ml Output Total 100 ml 300 ml Balance 400 ml -60 ml Intake Oral 500 ml 240 ml Output Urine Total 100 ml 300 ml # Voids 3 # Bowel Movements 1 Height (Feet): 5 Height (Inches): 4.00 Weight (Pounds): 173 General Appearance: no apparent distress Cardiovascular: normal rate Eduardo Russ MD Oct 25, 2017 13:42
[2017-10-25 16:00] VITALS: BP 141/72
--- NOTE | 2017-10-25 17:02 | Nephrology Progress Note ---
Assessment/Plan Problem List: (1) CKD (chronic kidney disease) stage 4, GFR 15-29 ml/min (2) Profound anemia (3) Upper GI bleed (4) UTI (urinary tract infection) Plan continue gi eval, lab a bit better, avoid fluid overload, epogen, lasix 40 iv on 10/20+10/21 , start hydralazine , add amlodipine for bp, colon prep ongoing, replace K+, should have av fistula in near future, watch bp Subjective Constitutional: Reports: weakness HEENT: Reports: no symptoms Genitourinary: Reports: no symptoms Neurologic/Psychiatric: Reports: pre-existing deficit Objective Objective Last 24 Hour Vital Signs Date Time Temp Pulse Resp B/P (MAP) Pulse Ox O2 Delivery O2 Flow Rate FiO2 10/25/17 12:31 145/64 10/25/17 12:00 97.5 64 20 145/75 96 97.5 10/25/17 09:12 61 132/57 10/25/17 09:11 61 132/57 10/25/17 08:00 97.2 71 20 135/52 97 97.2 10/25/17 08:00 69 10/25/17 06:07 152/72 10/25/17 04:03 65 10/25/17 04:00 98.2 60 23 147/68 97 98.2 10/25/17 00:56 149/70 10/25/17 00:00 98.5 67 22 149/70 94 98.5 10/24/17 23:37 64 10/24/17 21:06 70 146/63 10/24/17 20:00 98.3 70 22 146/63 95 98.3 10/24/17 19:00 63 Intake and Output 10/24/17 10/25/17 19:00 07:00 Intake Total 500 ml 240 ml Output Total 100 ml 300 ml Balance 400 ml -60 ml Intake Oral 500 ml 240 ml Output Urine Total 100 ml 300 ml # Voids 3 # Bowel Movements 1 Height (Feet): 5 Height (Inches): 4.00 Weight (Pounds): 173 General Appearance: no apparent distress EENT: other - mild periorbital edema Neck: normal alignment Cardiovascular: normal rate Respiratory/Chest: lungs clear Abdomen: non tender Extremities: trace edema Neurologic: motor weakness WEI RAO Oct 25, 2017 17:02
--- NOTE | 2017-10-25 18:25 | General Progress Note ---
Assessment/Plan Assessment/Plan Assessment: - GI Bleed - resolved - negative EGD, polyps on colonoscopy - Anemia - NIDDM - CRF - Recent h/o CVA - on ASA and Eliquis Recommendations: - PO diet - monitor CBC - continue ASA - Eliquis - repeat colon in 3 years Subjective Allergies: Coded Allergies: No Known Allergies (Unverified , 10/17/17) Subjective Feels OK no new symptoms d/w patient re path results Objective Last 24 Hour Vital Signs Date Time Temp Pulse Resp B/P (MAP) Pulse Ox O2 Delivery O2 Flow Rate FiO2 10/25/17 17:17 132/65 10/25/17 16:00 97.2 62 20 141/72 97 97.2 10/25/17 16:00 70 10/25/17 12:31 145/64 10/25/17 12:00 97.5 64 20 145/75 96 97.5 10/25/17 12:00 64 10/25/17 09:12 61 132/57 10/25/17 09:11 61 132/57 10/25/17 08:00 97.2 71 20 135/52 97 97.2 10/25/17 08:00 69 10/25/17 06:07 152/72 10/25/17 04:03 65 10/25/17 04:00 98.2 60 23 147/68 97 98.2 10/25/17 00:56 149/70 10/25/17 00:00 98.5 67 22 149/70 94 98.5 10/24/17 23:37 64 10/24/17 21:06 70 146/63 10/24/17 20:00 98.3 70 22 146/63 95 98.3 10/24/17 19:00 63 Intake and Output 10/24/17 10/25/17 19:00 07:00 Intake Total 500 ml 240 ml Output Total 100 ml 300 ml Balance 400 ml -60 ml Intake Oral 500 ml 240 ml Output Urine Total 100 ml 300 ml # Voids 3 # Bowel Movements 1 Height (Feet): 5 Height (Inches): 4.00 Weight (Pounds): 173 Objective WDWN NCAT supple CTA RRR abd soft ND NT trace edema non focal ATTILA BILL Oct 25, 2017 18:25
[2017-10-25] MEDS: Latanoprost 0.005% Opth 2.5ml Soln BOTH EYES SCH (21:46)
[2017-10-25 22:48] VITALS: BP 155/86
--- NOTE | 2017-10-26 02:00 | Progress Note ---
DATE: 10/24/2017 Late entry for 10/24/2017. SUBJECTIVE: The patient is status post colonoscopy with multiple polyps removed. Endoscopy was unremarkable. The patient has not had any new signs of bleeding. OBJECTIVE: VITAL SIGNS: Blood pressure 148/68, pulse 64, respiratory rate 20, and afebrile. NECK: Supple. LUNGS: Clear. CARDIAC: Regular rhythm and rate. Normal S1 and S2 with a fourth heart sound. ABDOMEN: Soft. EXTREMITIES: No edema. LABORATORY DATA: Reviewed. IMPRESSION: 1. Status post gastrointestinal bleed with severe anemia. No active bleeding source presently seen. 2. Status post acute myocardial infarction precipitated by severe anemia. 3. Acute on chronic renal failure, improved. 4. Cerebrovascular accident. 5. Paroxysmal atrial fibrillation. PLAN: 1. Continue aspirin, restart Eliquis. Observe for recurring bleeding. 2. Maintain current dose of beta-antonieta therapy. Toni Ariza M.D. DR: MARCO JOB#: [id number] CC:
--- NOTE | 2017-10-26 02:15 | Progress Note ---
DATE: 10/25/2017 SUBJECTIVE: The patient is back on anticoagulation. Blood pressure parameters are increased. PHYSICAL EXAMINATION: VITAL SIGNS: Blood pressure 145/75, pulse 64, and respiratory rate 20. LUNGS: Clear. CARDIAC: Regular. Normal S1 and S2. ABDOMEN: Soft. EXTREMITIES: No edema. NEUROLOGIC: Left-sided weakness. IMPRESSION: 1. Hypertensive heart disease. 2. Cerebrovascular accident. 3. Status post gastrointestinal bleed. 4. Severe anemia, status post transfusion. Gastrointestinal workup notable for multiple colon polyps, but no active bleeding at this time. 5. Acute myocardial infarction now with no signs of ongoing ischemia once hemoglobin stabilized. PLAN: 1. Medical therapy. 2. Cautious anticoagulation and anti-platelet therapy. 3. Cautious up titration of anti-failure and antihypertensive. 4. Stable for outpatient care with close outpatient followup. 5. Maintenance ___ diuretic upon discharge. Toni Ariza M.D. DR: MARCO JOB#: [id number] CC:
--- NOTE | 2017-10-27 09:42 | Discharge Summary ---
Discharge Summary Discharge Summary Discharge Summary DATE OF ADMISSION: 10/17/2017 DATE OF DISCHARGE: 10/25/2017 REASON FOR ADMISSION: 62 years old female with past medical history significant for CVA with left- sided weakness ( on Aspirin and Eliquis), diabetes mellitus type II, anemia, presented to emergency department with complaint of weakness. Patient reported inability to walk as usual. She denied chest pain, dyspnea, headache, trauma, vomiting, diarrhea. In emergency department upon evaluation noted elevated troponin 0.097; EKG showed no acute ischemic changes. Patient was given Aspirin. Hemoglobin 5.7 hematocrit 18.1. Patient with evidence of renal failure with BUN 113 and creatinine 4.0. Pro BNP 7166. Chest x-ray revealed increased pulmonary vasculature but no overt pulmonary edema. Urinalysis with evidence of UTI. Patient was given empiric antibiotics. Patient was admitted to [facility] for further management with diagnosis of profound anemia, probable NSTEMI, renal failure , GI bleeding, urinary tract infection. CONSULTANTS: senior solutions workflow consultant GI specialist gluer and slicer hand HOSPITAL COURSE: Patient was admitted to [facility]. Patient was transfused with goal to keep hemoglobin above 8 . Patient required total of 3 units of packed red blood cell transfusion. Anticoagulation was on hold as well as the antiplatelet therapy. Patient was started on cautious hydration. Cardiorenal parameters and volume status were closely [id number] . Patient was on intravenous beta antonieta. DVT prophylaxis provided with sequential compression device. Envelope Sealer closely followed. According to senior solutions workflow consultant, patient had acute myocardial infarction precipitated by severe anemia and decreased oxygen carrying capacity. Echocardiogram revealed ejection fraction of 55%, grade 3 diastolic dysfunction, severe tricuspid regurgitation, moderate to severe mitral regurgitation, right ventricular systolic pressure of 101 consistent with severe pulmonary hypertension. Envelope Sealer recommended to continue keep patient off antiplatelet and anticoagulant therapy, avoid overhydration, with close monitoring of volume status and cardiorenal parameters and transitioned from initial IV to oral beta antonieta with titration as needed for adequate rate control. Blood pressure was managed with hydralazine, calcium channel antonieta and beta antonieta. Statin was continued. Once hemoglobin stabilized, no signs of ongoing ischemia noted . Envelope Sealer recommended upon discharge maintenance dose of diuretic. GI specialist closely followed Patient subsequently undergone upper endoscopy on October 21, which was normal and a colonoscopy on October 23, which revealed multiply polyps, status post biopsy. Biopsy revealed tubular adenoma. GI recommended to resume diet, hold anticoagulation for additional day and then resume, consider capsule endoscopy to evaluate small bowel, and repeat colonoscopy in 3 years. Anticoagulation resumed as per GI recommendation on another day. Hemoglobin and hematocrit remained stable. Prior to discharge hemoglobin 9.6 hematocrit 28.7. Urine culture revealed Escherichia coli. Patient was on Keflex for urinary tract infection. Croze Cutter closely followed. Per gluer and slicer hand patient had chronic kidney disease stage IV. Croze Cutter recommended avoid fluid overload. Renal parameters and electrolytes were closely monitored, electrolytes replaced as needed, nephrotoxins were avoided. Croze Cutter stated that the patient should have AV fistula in near future. BUN down to 49 from initial 113 and creatinine from 4.0 down to 2.6. Supplemental oxygen provided as needed to keep pulse oximetry above 92%. Pulmonary toilet was on standby as needed. Chest x-ray revealed no acute cardiopulmonary pathology. Blood sugar was managed with anti-glycemic regimen and remained stable. Patient was working with physical and occupational therapists. Nutritional supplements were provided as per rubber covering machine operator's recommendation. Bowel regimen instituted. Patient clinically improved and was [facility]. 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 DISCHARGE INSTRUCTIONS: [facility] Follow up with medical doctor at the facility. I have been assigned to dictate discharge summary for this account. I was not involved in the patient's management. Edyta Smith NP ([place]) Oct 27, 2017 09:42
--- NOTE | 2017-10-27 17:15 | Cardiology Report ---
APPROVED REPORT EKG Measurement Heart [id number] Normal sinus rhythm Nonspecific T wave abnormality Abnormal ECG
== END 2017-10-25 23:07 | DRG 377 ==
LOC: EDBD 13:15 → EMR 16:24 → EDBEDREQ 16:52 → EDBEDREQSVC 17:11 → 2W 17:27 → EDBEDREQ 17:33 → 2E 10-20 15:30
PROC: 30233N1 Transfusion of Nonautologous Red Blood Cells into Peripheral Vein, Percutaneous Approach (ICD-10-PCS; principal; 2017-10-17)
PROC: 0DJ08ZZ Inspection of Upper Intestinal Tract, Via Natural or Artificial Opening Endoscopic (ICD-10-PCS; 2017-10-21)
PROC: 0D5K8ZZ Destruction of Ascending Colon, Via Natural or Artificial Opening Endoscopic (ICD-10-PCS; 2017-10-23)
PROC: 0D5N8ZZ Destruction of Sigmoid Colon, Via Natural or Artificial Opening Endoscopic (ICD-10-PCS; 2017-10-23)
PROC: 0D5M8ZZ Destruction of Descending Colon, Via Natural or Artificial Opening Endoscopic (ICD-10-PCS; 2017-10-23)
PROC: 0D5H8ZZ Destruction of Cecum, Via Natural or Artificial Opening Endoscopic (ICD-10-PCS; 2017-10-23)
DX: K92.2 Gastrointestinal hemorrhage, unspecified (principal); I21.4 Non-ST elevation (NSTEMI) myocardial infarction; I50.43 Acute on chronic combined systolic (congestive) and diastolic (congestive) heart failure; E43 Unspecified severe protein-calorie malnutrition; D62 Acute posthemorrhagic anemia; N17.9 Acute kidney failure, unspecified; I13.2 Hypertensive heart and chronic kidney disease with heart failure and with stage 5 chronic kidney disease, or end stage renal disease; N18.5 Chronic kidney disease, stage 5; R57.9 Shock, unspecified; D68.9 Coagulation defect, unspecified; N39.0 Urinary tract infection, site not specified; K63.5 Polyp of colon; E11.22 Type 2 diabetes mellitus with diabetic chronic kidney disease; Z79.4 Long term (current) use of insulin; Z79.84 Long term (current) use of oral hypoglycemic drugs; D12.0 Benign neoplasm of cecum; E11.21 Type 2 diabetes mellitus with diabetic nephropathy; F01.50 Vascular dementia, unspecified severity, without behavioral disturbance, psychotic disturbance, mood disturbance, and anxiety; R00.1 Bradycardia, unspecified; Z68.29 Body mass index [BMI] 29.0-29.9, adult; B96.20 Unspecified Escherichia coli [E. coli] as the cause of diseases classified elsewhere
CPT/HCPCS: 36415; 71045; 80048; 80053; 80061; 81003; 82550; 82570; 82962; 83036; 83735; 83880; 83935; 84300; 84443; 84484; 85007; 85025; 85610; 85730; 86850; 86900; 86901; 86920; 87086; 87181; 93005; 93306; 94003; 94150; 94760; 99291; J1815; J2250; J8499